=== PATIENT | male | born 1950 | race Caucasian/White ===

== ENCOUNTER 2017-10-15 12:58 | Observation (INO) | payer MEDICARE, SELFPAY ==
[2017-10-15] VITALS (24 sets, daily range): BP systolic 103–151; BP diastolic 61–87; PULSE 60–91; RESP 12–18; TEMP 36.4; O2SAT 95–99; BMI 27.8
--- NOTE | 2017-10-15 | IR_ITS ---
CARDIAC CATHETERIZATION DATE OF CATHETERIZATION:10/15/2017 1:43 PM PROCEDURES: 1. Left heart catheterization 2. Left ventriculogram 3. Selective coronary angiogram 4. Drug-eluting stent deployment to the proximal mid and distal dominant right coronary artery INDICATION FOR TEST: 1. Acute coronary syndrome 2. Coronary artery disease Informed consent was obtained prior to the procedure. COMPLICATIONS: None ESTIMATED BLOOD LOSS: Less than 10 ml. TECHNIQUE: One percent lidocaine used to anesthetize the right anterior aspect of the wrist. The right radial artery was accessed via the Seldinger technique. A 6 [place] sheath was placed in the right radial artery. 2.5 mg of verapamil, 800 mcg of nitroglycerin and 5000 U Heparin were given through the arterial sheath. The trap catheter was also used to perform left heart catheterization left ventriculogram and selective coronary angiogram. At the end of the diagnostic angiogram and additional 5000 units of heparin was administered intravenously. Brilinta 180 mg was given orally on the table. An Ikari right guide catheter was used intubate the right coronary artery and a choice PT extra-support wire was placed distally. 3.5 x 38 mm resolute [place] stent was deployed at 22 rishi in the proximal right coronary artery reducing the critical disease to 30%. An additional 4 mm x 38 mm resolute [place] stent was placed distal to the first stent overlapping this first stent and then deployed at 20 rishi. The balloon was brought back and deployed at 20 rishi within 3.5 mm stent. An additional 4.5 x 12 mm resolute Parish stent was then placed proximal to the first stent yet still overlapping and then deployed at 20 rishi. Excellent angiographic results were obtained with wide patency of the artery after the procedure. LEONOR II flow was present at the beginning of the procedure with LEONOR-3 flow at the end of the procedure. ANGIOGRAPHIC RESULTS: 1. The left main artery normal 2. 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 3. The circumflex artery nondominant and has mid vessel 10-20% stenoses 4. The right coronary artery is a large dominant vessel and has proximal eccentric 60% stenosis critical mid vessel 99% stenosis with distal 90% stenoses. 5. The GARCES ventriculogram reveals normal 65% 6. The left ventricular end-diastolic pressure elevated 30 mmHg IMPRESSION: 1. Critical proximal and mid and distal dominant right coronary artery disease accompanied by slow LEONOR II flow 2. Successful reconstruction of the proximal mid and distal dominant right coronary artery critical disease reduced to 0% with 3 drug-eluting stents 3. Normal ejection fraction 4. Moderately elevated LVEDP consistent with diastolic dysfunction and or hypertensive heart disease 5. Angiographically impressive mid myocardial bridge which is unlikely producing any clinical sequelae PLAN: 1. Brilinta and aspirin 2. LDL less than 55 3. Avoidance of tobacco products 4. Risk factor modification 5. The myocardial bridge is best managed medically with beta blockers and or diltiazem 6. Cardiac rehabilitation
--- NOTE | 2017-10-15 13:24 | HMH.CARDCON2 ---
History of Present Illness Consult date: 10/15/17 Requesting physician: Anders Li Consult reason: chest pain Chief complaint: chest pain History of present illness: 7-year-old white male with history of hypertension and rheumatoid arthritis was sent by Dr. Franks from the [facility] for evaluation for chest pain. Patient relates a 2 hour episode of substernal chest pressure and left arm discomfort last evening that resolved spontaneously. Occurred at rest included some nausea and diaphoresis. Patient had recurrent symptoms this a.m. while at work also at rest. EKG in Dr. Franks's office showed some questionable ST changes and patient was referred for further evaluation. She does take an aspirin 81 mg daily. He is non-smoker and not a diabetic. His mother did have some early heart disease in her early 60s. Review of Systems - *Cardiovascular Reports chest pain - *Respiratory Reports shortness of breath [facility] History Medical History: Reports:: Hypertension Other Medical History: Reports: Arthritis Exam - *Routine Neck Exam Absent: JVD, carotid bruit - *Routine Respiratory Exam Present: CTA bilaterally - *Routine Cardiovascular Exam Present: RRR. Absent: murmur, gallop, rubs - *Routine Extremities Exam Absent: edema - *Routine Neurological Exam Present: alert, oriented X3, moving all extremities EKG interpretations - EKG EKG shows: sinus rhythm Assessment and Plan (1) History of class IV angina pectoris Current visit: Yes Status: Acute Category: Medical Code(s): Z86.79 - Personal history of other diseases of the circulatory system (2) Hypertension Current visit: Yes Status: Acute Category: Medical Code(s): I10 - Essential (primary) hypertension (3) Arthritis Current visit: Yes Status: Acute Category: Medical Code(s): M19.90 - Unspecified osteoarthritis, unspecified site - Assessment and plan all Dx Assessment and Plan for all problems:: Patient has new onset angina pectoris at rest, class IV. We will proceed with left heart catheterization due to risk factors of hypertension, rheumatoid arthritis and family history of heart disease with abnormal EKG. Further recommendations to follow.
--- NOTE | 2017-10-15 13:28 | P.CONS_ITS ---
History of Present Illness Consult date: 10/15/17 Requesting physician: Anders Li Consult reason: chest pain Chief complaint: chest pain History of present illness: 7-year-old white male with history of hypertension and rheumatoid arthritis was sent by Dr. Franks from the [facility] for evaluation for chest pain. Patient relates a 2 hour episode of substernal chest pressure and left arm discomfort last evening that resolved spontaneously. Occurred at rest included some nausea and diaphoresis. Patient had recurrent symptoms this a.m. while at work also at rest. EKG in Dr. Franks's office showed some questionable ST changes and patient was referred for further evaluation. She does take an aspirin 81 mg daily. He is non-smoker and not a diabetic. His mother did have some early heart disease in her early 60s. Review of Systems - *Cardiovascular Reports chest pain - *Respiratory Reports shortness of breath [facility] History Medical History: Reports:: Hypertension Other Medical History: Reports: Arthritis Exam - *Routine Neck Exam Absent: JVD, carotid bruit - *Routine Respiratory Exam Present: CTA bilaterally - *Routine Cardiovascular Exam Present: RRR. Absent: murmur, gallop, rubs - *Routine Extremities Exam Absent: edema - *Routine Neurological Exam Present: alert, oriented X3, moving all extremities EKG interpretations - EKG EKG shows: sinus rhythm Assessment and Plan (1) History of class IV angina pectoris Current visit: Yes Status: Acute Category: Medical Code(s): Z86.79 - Personal history of other diseases of the circulatory system (2) Hypertension Current visit: Yes Status: Acute Category: Medical Code(s): I10 - Essential (primary) hypertension (3) Arthritis Current visit: Yes Status: Acute Category: Medical Code(s): M19.90 - Unspecified osteoarthritis, unspecified site - Assessment and plan all Dx Assessment and Plan for all problems:: Patient has new onset angina pectoris at rest, class IV. We will proceed with left heart catheterization due to risk factors of hypertension, rheumatoid arthritis and family history of heart disease with abnormal EKG. Further recommendations to follow.
[2017-10-15 13:42] LABS: Basophils # 0.1 K/mm3 (0-0.2); Basophils % 0.3 % (0.1-2.0); Eosinophils # 0.1 K/mm3 (0.0-0.4); Eosinophils % 0.7 % (0.1-12.0); Hematocrit 38.4 % (42.0-52.0); Hemoglobin 12.8 g/dL (14.1-18.0); Lymphocytes # 1.2 K/mm3 (0.7-4.5); Lymphocytes % 9.1 K/mm3 (10-50); Mean Corpuscular HGB Conc 33.4 g/dL (31.8-35.4); Mean Corpuscular Volume 89.8 fl (80-94); Mean Platelet Volume 7.7 fl (7.4-10.4); Monocytes # 0.4 K/mm3 (0.1-1.0); Monocytes % 2.6 % (1.7-9.3); Neutrophils # 11.9 K/mm3 (1.8-7.8); Neutrophils % 87.3 % (37.0-80.0); Platelet Count 307 K/mm3 (142-424); Red Blood Count 4.28 M/mm3 (4.60-6.20); Red Cell Distribution Width 15.1 % (11.5-17.5); White Blood Count 13.6 K/mm3 (4.8-10.8)
[2017-10-15 13:45] LABS: MANUAL DIFFERENTIAL MANUAL DIFFERENTIAL (MANUAL DIFF)
--- NOTE | 2017-10-15 13:46 | HMH.HP ---
*Admission Date: 10/15/17 *Chief complaint: chest pain *History of present illness: 67-year-old white male with history of hypertension and rheumatoid arthritis was sent by Dr. Li from the [facility] for evaluation for chest pain. Patient relates a 2 hour episode of substernal chest pressure and left arm discomfort last evening that resolved spontaneously. Occurred at rest included some nausea and diaphoresis. Patient had recurrent symptoms this a.m. while at work also at rest. EKG in Dr. Franks's office showed some questionable ST changes and patient was referred for further evaluation.e does take an aspirin 81 mg daily. He is non-smoker and not a diabetic. His mother did have some early heart disease in her early 60s. Above per HUNTER Greenberg [facility] History I have reviewed the patient's past medical history: Yes Medical History: Reports:: Hypertension Other Medical History: Reports: Arthritis - *Social History Educational Level: Completed High School Smoking Status: Former smoker Alcohol Intake: never Occupational Status: employed - Psychiatric History Expresses thoughts of harming self/others: None Suicide Plan Description: No Plan *Family Hx:: Hypertension Review of Systems - Review of Systems Review of systems:: pertinent systems reviewed and negative unless documented below - *Cardiovascular Reports chest pain, Reports shortness of breath with activity, Reports radiating jaw, neck or arm pain Meds Allergies Allergy/AdvReac Type Severity Reaction Status Date / Time No Known Allergies Allergy Verified 10/15/17 13:25 Exam Vital signs and Labs for Last 24 Hours: Pulse Resp BP Pulse Ox 91 H 16 151/87 95 10/15/17 13:26 10/15/17 13:26 10/15/17 13:26 10/15/17 13:26 Laboratory Results - last 24 hr 10/15/17 13:30: WBC 13.6 H, RBC 4.28 L, Hgb 12.8 L, Hct 38.4 L, MCV 89.8, MCH 30.0, MCHC 33.4, RDW 15.1, Plt Count 307, MPV 7.7, Neut % (Auto) 87.3 H, Lymph % (Auto) 9.1 L, [place] % (Auto) 2.6, Eos % (Auto) 0.7, Baso % (Auto) 0.3, Neut # (Auto) 11.9 H, Lymph # (Auto) 1.2, [place] # (Auto) 0.4, Eos # (Auto) 0.1, Baso # (Auto) 0.1 I & O for Last 24 hours: Intake & Output 10/13/17 10/14/17 10/15/17 10/16/17 11:59 11:59 11:59 11:59 Weight 205 lb Narrative: Alert and oriented x3. Rate and rhythm regular. No LE edema. Pulses 2+ bilaterally. No JVD. No Carotid bruits. No cervical LAD. Lung sounds clear and equal bilaterally. Abdomen soft and nontender. Normal sensation and strength bilaterally H&P: Result - Labs Labs: Short CBC 10/15/17 Range/Units 13:30 WBC 13.6 H (4.8-10.8) K/mm3 Hgb 12.8 L (14.1-18.0) g/dL Hct 38.4 L (42.0-52.0) % Plt Count 307 (142-424) K/mm3 Assessment and Plan (1) History of class IV angina pectoris Current visit: Yes Status: Acute Category: Medical Code(s): Z86.79 - Personal history of other diseases of the circulatory system (2) Hypertension Current visit: Yes Status: Acute Category: Medical Code(s): I10 - Essential (primary) hypertension (3) Arthritis Current visit: Yes Status: Acute Category: Medical Code(s): M19.90 - Unspecified osteoarthritis, unspecified site - Assessment and plan all Dx Assessment and Plan for all problems:: Admitted with chest pain protocol orders. Cardiology consulted. NPO for heart cath later today.
--- NOTE | 2017-10-15 13:50 | P.HP_ITS ---
*Admission Date: 10/15/17 *Chief complaint: chest pain *History of present illness: 67-year-old white male with history of hypertension and rheumatoid arthritis was sent by Dr. Li from the [facility] for evaluation for chest pain. Patient relates a 2 hour episode of substernal chest pressure and left arm discomfort last evening that resolved spontaneously. Occurred at rest included some nausea and diaphoresis. Patient had recurrent symptoms this a.m. while at work also at rest. EKG in Dr. Franks's office showed some questionable ST changes and patient was referred for further evaluation.e does take an aspirin 81 mg daily. He is non-smoker and not a diabetic. His mother did have some early heart disease in her early 60s. Above per HUNTER Greenberg [facility] History I have reviewed the patient's past medical history: Yes Medical History: Reports:: Hypertension Other Medical History: Reports: Arthritis - *Social History Educational Level: Completed High School Smoking Status: Former smoker Alcohol Intake: never Occupational Status: employed - Psychiatric History Expresses thoughts of harming self/others: None Suicide Plan Description: No Plan *Family Hx:: Hypertension Review of Systems - Review of Systems Review of systems:: pertinent systems reviewed and negative unless documented below - *Cardiovascular Reports chest pain, Reports shortness of breath with activity, Reports radiating jaw, neck or arm pain Meds Allergies Allergy/AdvReac Type Severity Reaction Status Date / Time No Known Allergies Allergy Verified 10/15/17 13:25 Exam Vital signs and Labs for Last 24 Hours: Pulse Resp BP Pulse Ox 91 H 16 151/87 95 10/15/17 13:26 10/15/17 13:26 10/15/17 13:26 10/15/17 13:26 Laboratory Results - last 24 hr 10/15/17 13:30: WBC 13.6 H, RBC 4.28 L, Hgb 12.8 L, Hct 38.4 L, MCV 89.8, MCH 30.0, MCHC 33.4, RDW 15.1, Plt Count 307, MPV 7.7, Neut % (Auto) 87.3 H, Lymph % (Auto) 9.1 L, [place] % (Auto) 2.6, Eos % (Auto) 0.7, Baso % (Auto) 0.3, Neut # ( Auto) 11.9 H, Lymph # (Auto) 1.2, [place] # (Auto) 0.4, Eos # (Auto) 0.1, Baso # ( Auto) 0.1 I & O for Last 24 hours: Intake & Output 10/13/17 10/14/17 10/15/17 10/16/17 11:59 11:59 11:59 11:59 Weight 205 lb Narrative: Alert and oriented x3. Rate and rhythm regular. No LE edema. Pulses 2+ bilaterally. No JVD. No Carotid bruits. No cervical LAD. Lung sounds clear and equal bilaterally. Abdomen soft and nontender. Normal sensation and strength bilaterally H&P: Result - Labs Labs: Short CBC 10/15/17 Range/Units 13:30 WBC 13.6 H (4.8-10.8) K/mm3 Hgb 12.8 L (14.1-18.0) g/dL Hct 38.4 L (42.0-52.0) % Plt Count 307 (142-424) K/mm3 Assessment and Plan (1) History of class IV angina pectoris Current visit: Yes Status: Acute Category: Medical Code(s): Z86.79 - Personal history of other diseases of the circulatory system (2) Hypertension Current visit: Yes Status: Acute Category: Medical Code(s): I10 - Essential (primary) hypertension (3) Arthritis Current visit: Yes Status: Acute Category: Medical Code(s): M19.90 - Unspecified osteoarthritis, unspecified site - Assessment and plan all Dx Assessment and Plan for all problems:: Admitted with chest pain protocol orders. Cardiology consulted. NPO for heart cath later today.
[2017-10-15 14:11] LABS: Alanine Aminotransferase 24 U/L (12-78); Albumin Level 3.3 gm/dL (3.4-5.0); Albumin/Globulin Ratio 0.9 (1.1-1.8); Alkaline Phosphatase 75 U/L (46-116); Anion Gap 14.5 mEq/L (5-15); Aspartate Amino Transferase 15 U/L (15-37); Bilirubin,Total 0.6 mg/dL (0.2-1.0); Blood Urea Nitrogen 25 mg/dL (7-18); CKMB Relative Index 1.9 U/L (0-4.0); Calcium 8.8 mg/dL (8.5-10.1); Carbon Dioxide 27 mmol/L (21.0-32.0); Chloride 103 mmol/L (98-107); Creatine Kinase 90 U/L (39-308); Creatine Kinase MB 1.7 mg/ml (0.0-3.6); Creatinine Clearance Estimated 74 mL/min (0-300); Creatinine,Serum 1.27 mg/dL (0.70-1.30); Estimated Glomerular Filt Rate 57 ml/min (>60); GFR (African American) 68 ML/MIN (>60); Globulin 3.8 gm/dl (1.3-3.2); Glucose 160 mg/dL (74-106); Potassium 3.5 mmoL/L (3.5-5.1); Sodium 141 mmol/L (136-145); Total Protein,Serum 7.1 gm/dL (6.4-8.2); Troponin I 0.04 ng/ml (0.00-0.06)
[2017-10-15 14:27] LABS: Lymphocytes % 3 % (10-50); Monocytes % 4 % (2-9); Neutrophils % 93 % (42-76); Platelet Estimate Normal; RBC Morphology Normal; Total Cells Counted 100
[2017-10-15 14:32] LABS: Thyroid Stimulating Hormone 1.38 uIU/ml (0.358-3.740)
[2017-10-15 15:24] LABS: CATHL Activated Clotting Time 288 SEC (74-125)
[2017-10-15 15:34] LABS: Hemoglobin A1C 6.3 % (0.0-7.0)
[2017-10-15 16:54] LABS: Troponin I 0.22 ng/ml (0.00-0.06)
--- NOTE | 2017-10-15 17:29 | PC.NURSE ---
Jag Lehman RN received report from Brisa in lab animal technician. I received report from Eliot Lehman RN. Pt arrived to his room via stretcher. Tracelet in place w/12ml's of air. Lungs are clear, o2 in 90' s on room air. Respirations are even and non labored. Abd soft and non tender w/active bowel sounds. Heart has a regular rate and rhythm. NSR on monitor. Cap refill <3 sec. Pt has a good appetite. Lots of family and friends at bedside. No complaints verbalized. Will continue to monitor.
--- NOTE | 2017-10-15 18:51 | PC.NURSE ---
Tracelet in place when pt arrived to the unit. Air was removed as follows: 1705 - 2ml's removed; 10 ml's left in tracelet 1720 - 2ml's removed; 8 ml's left in tracelet 1735 - 2ml's removed; 6 ml's left in traclet 1750 - 2ml's removed; 4 ml's left in tracelet 1805 - 2ml's removed; 2 ml's left in tracelet 1820 - 2ml's removed; 0 ml's left in tracelet 1835 - tracelet removed Telfa and tegaderm in place over r wrist. No s/s of hematoma; No oozing noted at site. Pt tolerated procedure w/o incident.
--- NOTE | 2017-10-15 19:12 | PC.NURSE ---
Report given to S Call RN
[2017-10-15 19:42] LABS: Troponin I 0.49 ng/ml (0.00-0.06)
[2017-10-15 23:02] LABS: Troponin I 1.09 ng/ml (0.00-0.06)
[2017-10-16] VITALS: BP 149/62; PULSE 57; PULSE 80; RESP 16; TEMP 36.9; O2SAT 96
--- NOTE | 2017-10-16 | CA_ITS ---
PROCEDURE: 2-D M-mode and color Doppler study INDICATIONS FOR THE TEST: Chest painX COPD Heart Murmur Tobacco Smoking Palpitations Fatigue Syncope Edema Hypertension Diabetes Mellitus Rheumatic Fever SOB QUINONES Obesity Hyperlipidemia Family History HD Additional History CAD,STENTS 10/15/17 PATIENT INFORMATION HEIGHT: 72 WEIGHT:205 GENDER: Male B/P:151/87 2-D/M-MODE INTERPRETATION: 2-D MEASUREMENTS OBSERVED VALUES IN CMS Right Ventricular Dimension (RVDd) 1.9 Interventricular Septum (Thickness)(IVsd) 1.0 Left Ventricular Internal Dimensions(LVIDd) 4.6 Left Ventricular Posterior Wall (Thickness)(LVPWd) 1.2 Aortic Root 3.9 Aortic Cusp Separation 1.9 Left Atrial Dimensions (LAD) 3.1 2D 1. Left atrium is qualitatively mildly enlarged, left ventricle is normal size, left ventricle wall thickness is upper limit of the normal, visually estimated ejection fraction of 50%, there appears to be inferobasal wall hypokinesis. 2. The right atrium and right ventricle are relatively normal size and function. 3. The aortic, mitral and tricuspid valve are grossly normal. 4. The pulmonic valve is poorly visualized. 5. No significant pericardial effusion noted. DOPPLER INTERROGATION: Doppler interrogation of the aortic, mitral and tricuspid valvular presence of mild mitral and tricuspid regurgitation, tricuspid and jet velocity is insufficient for calculation of the right ventricular systolic pressure, grade 1 diastolic dysfunction seen with tissue Doppler evidence of raised left atrial pressure. CONCLUSION: 1. Qualitatively mildly enlarged left atrium, normal left ventricular size, visually estimated ejection fraction of 50% with segmental wall motion abnormality described above, grade 1 diastolic dysfunction seen with tissue Doppler evidence of raised left atrial pressure. 2. Mild mitral and tricuspid regurgitation 3. No significant pericardial effusion noted.
[2017-10-16 02:08] VITALS: BP 159/74; PULSE 86; RESP 17; O2SAT 95
--- NOTE | 2017-10-16 03:09 | PC.NURSE ---
PT IS A&OX3. HE IS S/P HEART CATH AND RECEIVED 3 STENTS. HE DENIES CHEST PAIN AND ANY OTHER TYPE OF PAIN. HE REPORTS THAT HE FEELS MUCH BETTER THAT IT USED TO BE VERY DIFFICULT FOR HIM TO TAKE DEEP BREATHS. LUNG SOUNDS CTA. NORMAL BOWEL SOUNDS. HE HAS BEEN AMBULATING TO THE BATHROOM. RIGHT RADIAL DSG IS C/D/I. NO BRUISING OR SWELLING AT THE SITE. POSITIVE RADIAL AND PEDAL PULSES. NO EDEMA NOTED. CAPILLARY REFILL <3. PT EDUCATED TO NOTIFY STAFF IF HE NOTICES ANY BRUISING, BLEEDING, SWELLING AT SITE, OR IF HE HAS ANY FEELINGS OF THROBBING OR PULSATING AT OR NEAR THE SITE. HE WAS EDUCATED THAT THE DSG COULD COME OFF AFTER 24 HOURS BUT THAT HE SHOULD CONTINUE NOT TO USE HIS RIGHT ARM FOR STRENOUS ACTIVITY FOR 48-72 HOURS. HE VERBALIZED UNDERSTANDING. NSR ON TELEMETRY. VSS.
[2017-10-16 04:00] VITALS: BP 120/77; PULSE 80; RESP 18; O2SAT 94
[2017-10-16 06:00] VITALS: BP 142/59; PULSE 59; RESP 17; O2SAT 95
[2017-10-16 06:39] LABS: Chol/HDL Ratio 4.4 (1-3.5); Cholesterol 149 mg/dL (140-200); HDL Cholesterol 34 mg/dL (27-67); LDL Cholesterol 88 mg/dL (0-130); Triglycerides 137 mg/dL (30-200); VLDL Cholesterol 27 mg/dL (0-40)
--- NOTE | 2017-10-16 07:44 | HMH.PHAVTE ---
[facility] Pharmacy VTE Monitoring - Patient Demographics Admission date: 10/15/17 Report Date: 10/16/17 Time: 07:44 Allergies/Adverse Reactions: Patient Allergies No Known Allergies Allergy (Verified 10/15/17 13:25) Height: 1.83 m Weight: 91.626 kg Patient Problems: Current Active Problems History of class IV angina pectoris (Acute) Hypertension (Acute) Arthritis (Acute) - VTE Risk Labs: VTE Related Lab Results Hgb 12.8 g/dL (14.1-18.0) L 10/15/17 13:30 Hct 38.4 % (42.0-52.0) L 10/15/17 13:30 Plt Count 307 K/mm3 (142-424) 10/15/17 13:30 BUN 25 mg/dL (7-18) H 10/15/17 13:30 Creatinine 1.27 mg/dL (0.70-1.30) 10/15/17 13:30 Estimated Creat Clear 74 mL/min (0-300) 10/15/17 13:30 Was VTE Risk Assessment Performed: Yes VTE Risk Level: Very Low Risk Clinical Trial Participant: No - Prophylaxis Types of VTE Prophylaxis: TEDS Knee High Location of Applied Device: Bilateral Lower Extremeties
--- NOTE | 2017-10-16 07:49 | HMH.DCSUM ---
General - General Admission date: 10/15/17 Discharge date: 10/16/17 HPI HPI: 67-year-old white male with history of hypertension and rheumatoid arthritis was sent by Dr. Li from the [facility] for evaluation for chest pain. Patient relates a 2 hour episode of substernal chest pressure and left arm discomfort last evening that resolved spontaneously. Occurred at rest included some nausea and diaphoresis. Patient had recurrent symptoms this a.m. while at work also at rest. EKG in Dr. Franks's office showed some questionable ST changes and patient was referred for further evaluation.e does take an aspirin 81 mg daily. He is non-smoker and not a diabetic. His mother did have some early heart disease in her early 60s. Above per HUNTER Greenberg Objective Vital signs: Temp Pulse Resp BP Pulse Ox 98.4 F 59 L 17 142/59 95 10/16/17 00:00 10/16/17 06:00 10/16/17 06:00 10/16/17 06:00 10/16/17 06:00 Narrative: His morning, on day of discharge patient's exam has normalized, with clear lungs, heart rate regular, no edema. He is alert, pleasant, oriented, has no pain. Hospital Course Hospital Course: Patient was admitted, enzymes were negative, but taken to Data Security Administrator because of inferior EKG changes and typical angina. He was found to have significant critical RCA lesion which was the dominant system. 3 stents were placed with good results. Good hemodynamics. Overnight patient did well. This morning he is doing very nicely, no complaints, has been up around walking with no chest pain. He will be discharged home. Results Labs on day of discharge: Labs from last 24 hours 10/16/17 10/15/17 10/15/17 05:30 Unknown 22:15 WBC RBC Hgb Hct MCV MCH MCHC RDW Plt Count MPV Neut % (Auto) Lymph % (Auto) [place] % (Auto) Eos % (Auto) Baso % (Auto) Neut # (Auto) Lymph # (Auto) [place] # (Auto) Eos # (Auto) Baso # (Auto) Total Counted Neutrophils % (Manual) Lymphocytes % (Manual) Monocytes % (Manual) Platelet Estimate RBC Morphology Activated Clotting Time Sodium Potassium Chloride Carbon Dioxide Anion Gap BUN Creatinine Estimated Creat Clear Estimated GFR Est GFR ( Amer) Glucose Hemoglobin A1c Calcium Total Bilirubin AST ALT Alkaline Phosphatase Total Creatine Kinase CK-MB (CK-2) CK-MB (CK-2) Rel Index Troponin I 0.22 H 1.09 H Total Protein Albumin Globulin Albumin/Globulin Ratio Triglycerides 137 Cholesterol 149 LDL Cholesterol 88 VLDL Cholesterol 27 HDL Cholesterol 34 Cholesterol/HDL Ratio 4.4 H TSH 10/15/17 10/15/17 10/15/17 19:10 15:01 13:30 WBC RBC Hgb Hct MCV MCH MCHC RDW Plt Count MPV Neut % (Auto) Lymph % (Auto) [place] % (Auto) Eos % (Auto) Baso % (Auto) Neut # (Auto) Lymph # (Auto) [place] # (Auto) Eos # (Auto) Baso # (Auto) Total Counted Neutrophils % (Manual) Lymphocytes % (Manual) Monocytes % (Manual) Platelet Estimate RBC Morphology Activated Clotting Time 288 H* Sodium Potassium Chloride Carbon Dioxide Anion Gap BUN Creatinine Estimated Creat Clear Estimated GFR Est GFR ( Amer) Glucose Hemoglobin A1c 6.3 Calcium Total Bilirubin AST ALT Alkaline Phosphatase Total Creatine Kinase CK-MB (CK-2) CK-MB (CK-2) Rel Index Troponin I 0.49 H Total Protein Albumin Globulin Albumin/Globulin Ratio Triglycerides Cholesterol LDL Cholesterol VLDL Cholesterol HDL Cholesterol Cholesterol/HDL Ratio TSH 10/15/17 10/15/17 10/15/17 13:30 13:30 13:30 WBC 13.6 H RBC 4.28 L Hgb 12.8 L Hct 38.4 L MCV 89.8 MCH 30.0 MCHC 33.4 RDW 15.1 Plt Count 307 MPV
--- NOTE | 2017-10-16 07:55 | P.DS_ITS ---
General - General Admission date: 10/15/17 Discharge date: 10/16/17 HPI HPI: 67-year-old white male with history of hypertension and rheumatoid arthritis was sent by Dr. Li from the [facility] for evaluation for chest pain. Patient relates a 2 hour episode of substernal chest pressure and left arm discomfort last evening that resolved spontaneously. Occurred at rest included some nausea and diaphoresis. Patient had recurrent symptoms this a.m. while at work also at rest. EKG in Dr. Franks's office showed some questionable ST changes and patient was referred for further evaluation.e does take an aspirin 81 mg daily. He is non-smoker and not a diabetic. His mother did have some early heart disease in her early 60s. Above per [facility]UN[facility] Objective Vital signs: Temp Pulse Resp BP Pulse Ox 98.4 F 59 L 17 142/59 95 10/16/17 00:00 10/16/17 06:00 10/16/17 06:00 10/16/17 06:00 10/16/17 06:00 Narrative: His morning, on day of discharge patient's exam has normalized, with clear lungs , heart rate regular, no edema. He is alert, pleasant, oriented, has no pain. Hospital Course Hospital Course: Patient was admitted, enzymes were negative, but taken to [employer] because of inferior EKG changes and typical angina. He was found to have significant critical RCA lesion which was the dominant system. 3 stents were placed with good results. Good hemodynamics. Overnight patient did well. This morning he is doing very nicely, no complaints , has been up around walking with no chest pain. He will be discharged home. Results Labs on day of discharge: Labs from last 24 hours 10/16/17 10/15/17 10/15/17 05:30 Unknown 22:15 WBC RBC Hgb Hct MCV MCH MCHC RDW Plt Count MPV Neut % (Auto) Lymph % (Auto) Mayes % (Auto) Eos % (Auto) Baso % (Auto) Neut # (Auto) Lymph # (Auto) Mayes # (Auto) Eos # (Auto) Baso # (Auto) Total Counted Neutrophils % (Manual) Lymphocytes % (Manual) Monocytes % (Manual) Platelet Estimate RBC Morphology Activated Clotting Time Sodium Potassium Chloride Carbon Dioxide Anion Gap BUN Creatinine Estimated Creat Clear Estimated GFR Est GFR ( Amer) Glucose Hemoglobin A1c Calcium Total Bilirubin AST ALT Alkaline Phosphatase Total Creatine Kinase CK-MB (CK-2) CK-MB (CK-2) Rel Index Troponin I 0.22 H 1.09 H Total Protein Albumin Globulin Albumin/Globulin Ratio Triglycerides 137 Cholesterol 149 LDL Cholesterol 88 VLDL Cholesterol 27 HDL Cholesterol 34 Cholesterol/HDL Ratio 4.4 H TSH 10/15/17 10/15/17 10/15/17 19:10 15:01 13:30 WBC RBC Hgb Hct MCV MCH MCHC RDW Plt Count MPV Neut % (Auto) Lymph % (Au
[2017-10-16 08:00] VITALS: BP 99/75; PULSE 83; PULSE 90; PULSE 91; RESP 14; RESP 16; O2SAT 95; O2SAT 96
--- NOTE | 2017-10-16 09:34 | HMH.CARDPN2 ---
Subjective PN (PG) Date: 10/16/17 Time: 08:30 Principal diagnosis: Angina Interval history: 67-year-old white male who underwent coronary stenting to the right coronary artery yesterday. Denies any chest pain or pressure overnight. PN Exam ([facility] Owned) Vital signs: Temp Pulse Resp BP Pulse Ox 98.4 F 91 H 16 142/59 95 10/16/17 00:00 10/16/17 08:00 10/16/17 08:00 10/16/17 06:00 10/16/17 08:00 - Routine Respiratory Exam Present: CTA bilaterally - Routine Cardiovascular Exam Present: RRR A/P Progress Note ([facility] Owned) (1) History of class IV angina pectoris Status: Acute Current Visit: Yes (2) Hypertension Status: Acute Current Visit: Yes (3) Arthritis Status: Acute Current Visit: Yes (4) CAD (coronary artery disease), [place] coronary artery Status: Acute Assessment and plan: Status post drug-eluting stent placement ?3 to the right coronary artery. Patient is on aspirin and Brilinta. He has been started on statin therapy. Continue home lisinopril dose. Okay for discharge from cardiology standpoint. Follow-up in 1 week. Current Visit: Yes
[2017-10-16 10:00] VITALS: BP 120/70; PULSE 79; RESP 18; TEMP 36.8; O2SAT 95
== END 2017-10-16 12:00 | disposition home or self-care (01) ==
LOC: 2ND 13:23 → ICU 16:13
PROVIDERS: Internal Medicine; Nurse Practitioner Family; Admitting Provider Internal Medicine Adolescent Medicine; Visit Provider Internal Medicine Adolescent Medicine
DX: I25.10 Atherosclerotic heart disease of native coronary artery without angina pectoris (principal); I10 Essential (primary) hypertension; M06.9 Rheumatoid arthritis, unspecified; R79.89 Other specified abnormal findings of blood chemistry
CPT/HCPCS: 36415; 80053; 80061; 82550; 82553; 83036; 84443; 84484; 85007; 85025; 85347; 92928; 92929; 93005; 93306; 93458; 99152; 99153; C1725; C1769; C1876; C9600; C9601; G0378; J1644

== ENCOUNTER 2017-10-23 09:14 | Outpatient (RCR) | payer MEDICARE, SELFPAY | END 2017-12-31 10:49 | disposition home or self-care (01) | LOC: PT 09:14 | PROVIDERS: Visit Provider Internal Medicine | DX: Z95.5 Presence of coronary angioplasty implant and graft (principal) ==

== ENCOUNTER 2017-10-25 21:22 | Observation (INO) | payer MEDICARE, SELFPAY ==
[2017-10-25 21:29] VITALS: BP 135/89; PULSE 82; RESP 20; TEMP 36.8; O2SAT 97; BMI 26.9
--- NOTE | 2017-10-25 21:35 | XR_ITS ---
XR chest 2V HISTORY: ITS.REASON: sob ORDERING PHYSICIAN: Rohan Jules MD PATIENT AGE: 67 years COMPARISON: None available FINDINGS: The heart size is normal. No evidence of CHF. There is increased density in the left hilum suspicious for hilar mass pneumonia in the left upper lobe which may be postobstructive in nature. The remaining lungs are clear. No acute bony anomalies or effusion. IMPRESSION: Left hilar mass with left upper lobe pneumonia suspicious for neoplasm with postobstructive pneumonitis. Recommend chest CT with contrast for further evaluation
[2017-10-25 21:42] LABS: Basophils % 0.6 % (0.1-2.0); Eosinophils % 0.5 % (0.1-12.0); Hematocrit 39.3 % (42.0-52.0); Hemoglobin 13.1 g/dL (14.1-18.0); Lymphocytes # 1.3 K/mm3 (0.7-4.5); Lymphocytes % 21.6 K/mm3 (10-50); Mean Corpuscular HGB Conc 33.5 g/dL (31.8-35.4); Mean Corpuscular Hemoglobin 30.1 pg (27.0-31.2); Mean Corpuscular Volume 89.9 fl (80-94); Mean Platelet Volume 7.2 fl (7.4-10.4); Monocytes # 0.5 K/mm3 (0.1-1.0); Monocytes % 8.7 % (1.7-9.3); Neutrophils # 4.2 K/mm3 (1.8-7.8); Neutrophils % 68.7 % (37.0-80.0); Platelet Count 319 K/mm3 (142-424); Red Blood Count 4.37 M/mm3 (4.60-6.20); White Blood Count 6.1 K/mm3 (4.8-10.8)
--- NOTE | 2017-10-25 21:53 | PC.NURSE ---
pt with rad
--- NOTE | 2017-10-25 22:00 | HMH.EDSOB ---
ED Disposition Clinical Impression: Community acquired pneumonia Qualifiers: Laterality: left Lung location: unspecified part of lung Qualified Code(s): J18.9 - Pneumonia, unspecified organism Disposition: Admitted as Observation Condition on Discharge: Good Referrals: Anders Li MD [Primary Care Provider] - - Critical Care Critical Care Time: No Attestation: On 10/25/17, the high probability of a clinically significant, sudden or life threatening deterioration of the following system(s) required my full and direct attention, intervention and personal management. The time I documented below is in addition to time spent performing reported procedures but includes the following listed in this critical care notation. Medical Decision Making - Medical Records Medical records reviewed: Yes: I reviewed the patient's medical records. Vital Signs: 10/25/17 21:29 Temperature 98.3 F Temperature Source Oral Pulse Rate [Right Radial] 82 Respiratory Rate 20 Blood Pressure [Right Arm] 135/89 Blood Pressure Mean [Right Arm] 104 Blood Pressure Source [Right Arm] Automatic Cuff Blood Pressure Position [Right Arm] Sitting 02 Sat by Pulse Oximetry 97 Oxygen Delivery Method Room Air - Lab Data Lab results reviewed: Yes: I reviewed the patient's lab results. Lab Results 10/25/17 21:40: WBC 6.1, RBC 4.37 L, Hgb 13.1 L, Hct 39.3 L, MCV 89.9, MCH 30.1, MCHC 33.5, RDW 15.0, Plt Count 319, MPV 7.2 L, Neut % (Auto) 68.7, Lymph % (Auto) 21.6, Banner % (Auto) 8.7, Eos % (Auto) 0.5, Baso % (Auto) 0.6, Neut # (Auto) 4.2, Lymph # (Auto) 1.3, Banner # (Auto) 0.5, Eos # (Auto) 0.0, Baso # (Auto) 0.0 10/25/17 21:40: Sodium 139, Potassium 3.6, Chloride 102, Carbon Dioxide 26, Anion Gap 14.6, BUN 27 H, Creatinine 1.14, Estimated Creat Clear 80, Estimated GFR 64, Est GFR ( Amer) 78, Glucose 143 H, Calcium 8.5, Total Bilirubin 0.4, AST 34, ALT 38, Alkaline Phosphatase 69, Total Creatine Kinase 380 H, CK-MB (CK-2) 4.8 H D, CK-MB (CK-2) Rel Index 1.3, Troponin I 0.02, Total Protein 6.8, Albumin 3.5, Globulin 3.3 H, Albumin/Globulin Ratio 1.1 10/25/17 21:40: B-Natriuretic Peptide 19 Result diagrams: 10/25/17 21:40 10/25/17 21:40 Orders (Tests/Meds): ORDERS Category Date Time Status XR chest 2V Stat Exams 10/25/17 21:35 Taken Lactic Acid Stat Lab 10/25/17 22:37 Ordered Blood Culture Stat Micro 10/25/17 22:37 Ordered 12-lead EKG Request [ECG Request by /Arcadio] Stat Y 10/25/17 21:37 Ordered - Radiology Data #1 Image(s): Chest Image Reviewed: Yes I reviewed the patient's radiology image Preliminary Findings: Abnormal (lt upper lobe changes ) - ECG Data Tracing #1 I reviewed this ECG and interpreted as documented below: Normal Sinus Rhythm: Yes Ischemic changes: non-specific ST-T wave changes - Jalen Inquiry Pt receiving controlled substance: No Resp/SOB HPI - General Chief Complaint: Shortness of Breath/Dyspnea Stated Complaint: sob Time Seen by Provider: 10/25/17 22:01 Mode of Arrival: Ambulatory Source of Information: Patient, Spouse, Medical Record Limitations: No Limitations Description of Symptoms (Recalled from ER Triage Doc. by RN): Pt. reports 3 stents palce on . Pt reports difficulty breathing, weakness, belching, and feeling jittery. - History of Present Illness productive cough over the last few days MD Complaint: shortness of breath, cough Onset (ago): day(s) Severity: moderate Known history of: other (recent mi) - Related Data Home Medications Medication Instructions Recorded Confirmed predniSONE [Prednisone 5mg 5 mg PO DAILY 10/15/17 10/25/17 Tab] Aspirin [Aspirin 81mg EC Tab] 81 mg PO DAILY 10/16/17 10/25/17 Atorvastatin Calcium [Atorvastatin 40 mg PO HS 10/16/17 10/25/17 40mg Tab] Ticagrelor [Brilinta 90mg Tablet] 90 mg PO BID 10/16/17 10/25/17 benzonatate 100 mg capsule 100 mg PO ONCE 10/23/17 10/25/17 Lisinopril [Prinivil 20mg Tablet] 20
[2017-10-25 22:19] LABS: Alanine Aminotransferase 38 U/L (12-78); Albumin Level 3.5 gm/dL (3.4-5.0); Albumin/Globulin Ratio 1.1 (1.1-1.8); Alkaline Phosphatase 69 U/L (46-116); Anion Gap 14.6 mEq/L (5-15); Bilirubin,Total 0.4 mg/dL (0.2-1.0); Blood Urea Nitrogen 27 mg/dL (7-18); CKMB Relative Index 1.3 U/L (0-4.0); Calcium 8.5 mg/dL (8.5-10.1); Carbon Dioxide 26 mmol/L (21.0-32.0); Chloride 102 mmol/L (98-107); Creatine Kinase 380 U/L (39-308); Creatine Kinase MB 4.8 mg/ml (0.0-3.6); Creatinine Clearance Estimated 80 mL/min (0-300); Creatinine,Serum 1.14 mg/dL (0.70-1.30); Estimated Glomerular Filt Rate 64 ml/min (>60); GFR (African American) 78 ML/MIN (>60); Globulin 3.3 gm/dl (1.3-3.2); Glucose 143 mg/dL (74-106); Potassium 3.6 mmoL/L (3.5-5.1); Sodium 139 mmol/L (136-145); Total Protein,Serum 6.8 gm/dL (6.4-8.2); Troponin I 0.02 ng/ml (0.00-0.06)
[2017-10-25 22:30] LABS: Aspartate Amino Transferase 34 U/L (15-37)
[2017-10-25 23:19] LABS: Lactic Acid 1.3 mmol/L (0.4-2.0)
[2017-10-25 23:20] VITALS: BP 123/85; PULSE 80; RESP 18; TEMP 36.6; O2SAT 100
[2017-10-25 23:30] VITALS: BP 115/64; PULSE 83; RESP 18; O2SAT 98
[2017-10-26] VITALS (11 sets, daily range): BP systolic 110–131; BP diastolic 72–85; PULSE 65–101; RESP 18–20; TEMP 36.5–37; O2SAT 96–98; BMI 26.1
--- NOTE | 2017-10-26 03:30 | PC.NURSE ---
PATIENT C/O FREQUENT BELCHING; STATES THAT HE HAS TO BELCH SEVERAL TIMES IN ORDER TO BE ABLE TO TAKE A DEEP BREATH. PATIENT AND FAMILY STATE THAT PATIENT HAD BEEN HAVING THIS PARTICULAR PROBLEM SINCE HIS HEART CATH LAST SATURDAY. PATIENT IS NOT IN ANY DISTRESS AT THIS TIME. KATHLEEN KLINE SPOKE WITH DR. ZHENG. TO OBTAINED FOR MYLANTA 30 ML PO ONCE. WILL CONTINUE TO MONITOR.
[2017-10-26 06:57] LABS: Basophils % 0.6 % (0.1-2.0); Eosinophils % 0.2 % (0.1-12.0); Hematocrit 34.5 % (42.0-52.0); Lymphocytes # 1.7 K/mm3 (0.7-4.5); Mean Corpuscular HGB Conc 33.5 g/dL (31.8-35.4); Mean Corpuscular Hemoglobin 29.7 pg (27.0-31.2); Mean Corpuscular Volume 88.6 fl (80-94); Mean Platelet Volume 7.3 fl (7.4-10.4); Monocytes # 0.6 K/mm3 (0.1-1.0); Monocytes % 9.8 % (1.7-9.3); Neutrophils # 3.8 K/mm3 (1.8-7.8); Neutrophils % 61.4 % (37.0-80.0); Platelet Count 265 K/mm3 (142-424); Red Blood Count 3.89 M/mm3 (4.60-6.20); Red Cell Distribution Width 14.9 % (11.5-17.5); White Blood Count 6.2 K/mm3 (4.8-10.8)
[2017-10-26 07:06] LABS: Anion Gap 11.4 mEq/L (5-15); Blood Urea Nitrogen 24 mg/dL (7-18); Carbon Dioxide 28 mmol/L (21.0-32.0); Chloride 106 mmol/L (98-107); Creatinine Clearance Estimated 83 mL/min (0-300); Creatinine,Serum 1.06 mg/dL (0.70-1.30); Estimated Glomerular Filt Rate 70 ml/min (>60); GFR (African American) 84 ML/MIN (>60); Glucose 78 mg/dL (74-106); Potassium 3.4 mmoL/L (3.5-5.1); Sodium 142 mmol/L (136-145)
[2017-10-26 07:32] LABS: Hemoglobin 11.7 g/dL (14.1-18.0)
--- NOTE | 2017-10-26 07:35 | CT_ITS ---
CT chest wo/w con HISTORY: Pneumonia, hilar mass, abnormal x-ray, pulmonary nodule evaluation ITS.REASON: abnormal CXR, pneumonia ORDERING PHYSICIAN: Anders Li MD PATIENT AGE: 67 years TECHNIQUE: Axial images obtained without and with contrast. Sagittal and coronal reformatted images are also generated and reviewed. CONTRAST: 75ml Isovue 370 I.V. COMPARISON: Radiograph of 10-25 FINDINGS: Axial images are obtained without and with contrast demonstrating a left hilar mass. Mass is epicentered in the left suprahilar region with extension into the mediastinum draping over the left main pulmonary artery. The largest dimensions of the mass is 6.6 cm transverse, 5.5 cm AP, and 5 cm cephalad to caudad. The mass obliterates the left upper lobe bronchus. There is narrowing of the lingular bronchus with thickening of the lingular bronchus. There is ipsilateral mediastinal adenopathy. Subcarinal adenopathy is also noted with subcarinal nodes measuring up to 3.3 x 2 cm small nodes are present in the right hilum probably 1 cm in short axis. The mass attenuates and possibly includes the upper lobe branch of the pulmonary artery There is post obstructive pneumonia within the left upper lobe most prominent centrally and in the left upper lobe laterally and posteriorly. There are mild centrilobular emphysematous changes. No other nodules are evident. There is a small hiatal hernia. The right lung is clear. The adrenal glands are unremarkable. Upper abdominal images are unremarkable. No evidence of aortic aneurysm. 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 The mass is central and would be amenable to biopsy by bronchoscopy and NOT readily accessible for percutaneous CT directed. Centrilobular emphysema. Coronary artery disease.
--- NOTE | 2017-10-26 13:25 | P.CONPHA_ITS ---
[facility] Pharmacy VTE Monitoring - Patient Demographics Admission date: 10/26/17 Report Date: 10/26/17 Time: 13:24 Allergies/Adverse Reactions: Patient Allergies No Known Allergies Allergy (Verified 10/25/17 21:36) Height: 1.83 m Weight: 87.288 kg Patient Problems: Current Active Problems Community acquired pneumonia (Acute) - VTE Risk Labs: VTE Related Lab Results Hgb 11.7 g/dL (14.1-18.0) L D 10/26/17 06:20 Hct 34.5 % (42.0-52.0) L 10/26/17 06:20 Plt Count 265 K/mm3 (142-424) 10/26/17 06:20 BUN 24 mg/dL (7-18) H 10/26/17 06:20 Creatinine 1.06 mg/dL (0.70-1.30) 10/26/17 06:20 Estimated Creat Clear 83 mL/min (0-300) 10/26/17 06:20 VTE Score: 3 VTE Risk Level: Low Risk - Prophylaxis VTE Prophylaxis Ordered?: Yes Types of VTE Prophylaxis: TEDS Knee High Location of Applied Device: Bilateral Lower Extremeties
--- NOTE | 2017-10-26 13:32 | CT_ITS ---
CT head/brain wo/w con HISTORY: Lung mass highly suggestive of cancer, evaluate for metastatic disease ITS.REASON: lung mass ORDERING PHYSICIAN: Anders Li MD PATIENT AGE: 67 years COMPARISON: None TECHNIQUE: Axial images obtained without and with contrast. Brain and bone windows reviewed. FINDINGS: No midline shift, mass effect, intracranial hemorrhage, hydrocephalus, or extra-axial fluid collection is evident. No enhancing lesions are evident. There is some mild atrophy with mild periventricular ischemic gliotic change. The calvarium has an unremarkable appearance. No mastoid effusion. No sinus air-fluid levels.. IMPRESSION: 1. No evidence of metastatic disease. 2. No acute intracranial findings.
--- NOTE | 2017-10-26 13:33 | HMH.HP ---
*Admission Date: 10/26/17 *Chief complaint: heartburn, left chest discomfort *History of present illness: 67 yr old male with recently diagnosed CAD s/p 3 stents placed on 10/15/17 presented to the ED last evening with what he calls heartburn . He has been having this for several days but last night he felt like it was causing him to be unable to take a big breath and he felt increasingly SOA. He had been started on PO pantoprazole by Dr Kennedy earlier this week and Dr Li had started him on azithromycin and prednisone PO for acute respiratory symptoms but neither of these interventions have symptomatically helped him. In the ED he was found to have a LEFT upper lobe pnuemonia, possibly postobstructive, and he was admitted for management. This morning he still reports some discomfort but improved overall since getting pepcid IV in the ED. [facility] History I have reviewed the patient's past medical history: Yes Medical History: Reports:: Atherosclerotic Heart Disease, Hyperlipidemia, Hypertension, Myocardial Infarction Denies:: Diabetes Mellitus Type 1, Diabetes Mellitus Type 2 Other Medical History: Reports: Arthritis Comment: inflammatory, on MTX weekly Other Surgeries: Yes: Coronary Stent, Hernia Repair, Other (C, Eye Sx) - *Social History Smoking Status: Former smoker #Yrs smoked (if former smoker): 33 Smoking End Date: around age 47 Alcohol Intake: never Occupational Status: employed Household Members: none - Psychiatric History Expresses thoughts of harming self/others: None Suicide Plan Description: No Plan *Family Hx:: Cancer, Diabetes, Heart Attack, Hypertension Review of Systems - Review of Systems Review of systems:: pertinent systems reviewed and negative unless documented below - Constitutional Reports fatigue, Denies anorexia, Denies fever(s) - *Cardiovascular Reports chest pain at rest, Reports shortness of breath, Denies chest pain with activity, Denies foot swelling, Denies radiating jaw, neck or arm pain - *Respiratory Reports chest congestion, Reports cough, Reports shortness of breath, Reports pain with cough, Denies coughing up blood - *Gastrointestinal Reports belching, Reports bloating, Denies abdominal pain, Denies change in bowel habits - *Genitourinary Denies difficulty urinating - *Musculoskeletal Reports joint pain - *Neurologic Denies abnormal movements, Denies confusion, Denies numbness, Denies seizure-like activity, Denies dizziness Meds Home Medications Medication Instructions Recorded Confirmed Type predniSONE [Prednisone 5mg 20 mg PO DAILY 10/15/17 10/26/17 History Tab] Aspirin [Aspirin 81mg EC Tab] 81 mg PO DAILY 10/16/17 10/25/17 History Atorvastatin Calcium [Atorvastatin 40 mg PO HS 10/16/17 10/25/17 History 40mg Tab] Ticagrelor [Brilinta 90mg Tablet] 90 mg PO BID 10/16/17 10/25/17 History benzonatate 100 mg capsule 100 mg PO TID 10/23/17 10/26/17 History Lisinopril [Prinivil 20mg Tablet] 40 mg PO DAILY 10/25/17 10/26/17 History Metoprolol Succinate 25 mg PO QHS 10/25/17 10/25/17 History Pantoprazole Sodium [Protonix 40mg 40 mg PO QAM 10/25/17 10/25/17 History tablet] Latanoprost [Xalatan 0.005% Ophth 1 drop OP DAILY 10/26/17 10/26/17 History Soln 2.5mL] Nabumetone [Nabumetone] 750 mg PO BID 10/26/17 10/26/17 History hydroCHLOROthiazide [HCTZ 25mg 25 mg PO DAILY 10/26/17 10/26/17 History tab] metHOTREXate sodium [metHOTREXate 0 mg PO WEEKLY 10/26/17 10/26/17 History 2.5mg Tablet] Allergies Allergy/AdvReac Type Severity Reaction Status Date / Time No Known Allergies Allergy Verified 10/25/17 21:36 Exam Vital signs and Labs for Last 24 Hours: Temp Pulse Resp BP Pulse Ox 97.7 F 75 18 110/72 97 10/26/17 11:47 10/26/17 11:47 10/26/17 11:47 10/26/17 11:47 10/26/17 11:47 Laboratory Results - last 24 hr 10/26/17 06:20: WBC 6.2, RBC 3.89 L, Hgb 11.7 L D, Hct 34.5 L, MCV 88.6, MCH 29.7, MCHC 33.
--- NOTE | 2017-10-26 13:36 | P.HP_ITS ---
*Admission Date: 10/26/17 *Chief complaint: heartburn, left chest discomfort *History of present illness: 67 yr old male with recently diagnosed CAD s/p 3 stents placed on 10/15/17 presented to the ED last evening with what he calls heartburn . He has been having this for several days but last night he felt like it was causing him to be unable to take a big breath and he felt increasingly SOA. He had been started on PO pantoprazole by Dr Kennedy earlier this week and Dr Li had started him on azithromycin and prednisone PO for acute respiratory symptoms but neither of these interventions have symptomatically helped him. In the ED he was found to have a LEFT upper lobe pnuemonia, possibly postobstructive, and he was admitted for management. This morning he still reports some discomfort but improved overall since getting pepcid IV in the ED. [facility] History I have reviewed the patient's past medical history: Yes Medical History: Reports:: Atherosclerotic Heart Disease, Hyperlipidemia, Hypertension, Myocardial Infarction Denies:: Diabetes Mellitus Type 1, Diabetes Mellitus Type 2 Other Medical History: Reports: Arthritis Comment: inflammatory, on MTX weekly Other Surgeries: Yes: Coronary Stent, Hernia Repair, Other (C, Eye Sx) - *Social History Smoking Status: Former smoker #Yrs smoked (if former smoker): 33 Smoking End Date: around age 47 Alcohol Intake: never Occupational Status: employed Household Members: none - Psychiatric History Expresses thoughts of harming self/others: None Suicide Plan Description: No Plan *Family Hx:: Cancer, Diabetes, Heart Attack, Hypertension Review of Systems - Review of Systems Review of systems:: pertinent systems reviewed and negative unless documented below - Constitutional Reports fatigue, Denies anorexia, Denies fever(s) - *Cardiovascular Reports chest pain at rest, Reports shortness of breath, Denies chest pain with activity, Denies foot swelling, Denies radiating jaw, neck or arm pain - *Respiratory Reports chest congestion, Reports cough, Reports shortness of breath, Reports pain with cough, Denies coughing up blood - *Gastrointestinal Reports belching, Reports bloating, Denies abdominal pain, Denies change in bowel habits - *Genitourinary Denies difficulty urinating - *Musculoskeletal Reports joint pain - *Neurologic Denies abnormal movements, Denies confusion, Denies numbness, Denies seizure- like activity, Denies dizziness Meds Home Medications Medication Instructions Recorded Confirmed Type predniSONE [Prednisone 5mg 20 mg PO DAILY 10/15/17 10/26/17 History Tab] Aspirin [Aspirin 81mg EC Tab] 81 mg PO DAILY 10/16/17 10/25/17 History Atorvastatin Calcium [Atorvastatin 40 mg PO HS 10/16/17 10/25/17 History 40mg Tab] Ticagrelor [Brilinta 90mg Tablet] 90 mg PO BID 10/16/17 10/25/17 History benzonatate 100 mg capsule 100 mg PO TID 10/23/17 10/26/17 History Lisinopril [Prinivil 20mg Tablet] 40 mg PO DAILY 10/25/17 10/26/17 History Metoprolol Succinate 25 mg PO QHS 10/25/17 10/25/17 History Pantoprazole Sodium [Protonix 40mg 40 mg PO QAM 10/25/17 10/25/17 History tablet] Latanoprost [Xalatan 0.005% Ophth 1 drop OP DAILY 10/26/17 10/26/17 History Soln 2.5mL] Nabumetone [Nabumetone] 750 mg PO BID 10/26/17 10/26/17 History hydroCHLOROthiazide [HCTZ 25mg 25 mg PO DAILY 10/26/17 10/26/17 History tab] metHOTREXate sodium [metHOTREXate 0 mg PO WEEKLY 10/26/17 10/26/17
--- NOTE | 2017-10-26 17:04 | PC.NURSE ---
PATIENT HAS BEEN RESTING IN BED MOST OF THE DAY WITH FAMILY AT BEDSIDE. PATIENT HAS NOT COMPLAINED OF ANY PAIN TODAY, BUT HAS COMPLAINED OF ACID REFLUX, MD NOTIFIED AND NEW ORDERS WERE GIVEN FOR 30ML MAALOX , ONE TIME ORDER. PATIENT STATES THAT HELPS HIM. PATIENTS VITAL SIGNS HAVE BEEN STABLE THIS SHIFT , LUNG SOUNDS ARE WHEEZES TO LEFT UPPER LUNG. PATIENT DENIES ANY NEEDS AT THIS TIME, NO DISTRESS NOTED, BREATHING IS EVEN AND NON LABORED. WILL CONTINUE TO MONITOR.
--- NOTE | 2017-10-26 20:54 | PC.NURSE ---
(abril) notified @ 2041 of pt requesting something to help him sleep and relax. Dr. Jules stated he would look into his chart. No new orders at this time.
[2017-10-27] VITALS: BP 110/71; PULSE 78; RESP 20; TEMP 35.9; O2SAT 96
--- NOTE | 2017-10-27 03:37 | PC.NURSE ---
SINCE ADMINISTRATION OF PO ATIVAN PT HAS RESTED VERY WELL. DURING 2099 MEDICATION ADMINISTRATION, PT STATED THAT HE TOOK HIS NORMAL NIGHT TIME MEDICATIONS THAT WERE BROUGHT FROM HOME WITHOUT NURSE KNOWLEDGE OR SUPERVISION. PT EDUCATED THAT ALL MEDICATIONS ADMINISTERED SHOULD BE ADMINISTERED PER NURSE. PT REFUSED XALATAN EYE DROPS, STATES HE TAKES THEM IN MORNING AND NOT AT NIGHT. PT FAMILY AT BEDSIDE THROUGHOUT ENTIRE SHIFT. PT HAD EXPIRATORY WHEEZES IN BLL UPON AUSCULTATION. PT REFUSES TO WEAR TEDS. PT BOWEL SOUNDS ACTIVE. VSS. NO SIGNS OF ACUTE DISTRESS NOTED AT THIS TIME., WILL CONTINUE TO MONITOR.
[2017-10-27 04:00] VITALS: BP 116/71; PULSE 75; RESP 18; TEMP 36.5; O2SAT 96
[2017-10-27 06:25] VITALS: PULSE 82; PULSE 84
--- NOTE | 2017-10-27 07:10 | HMH.DCSUM ---
General - General Admission date: 10/26/17 Discharge date: 10/27/17 HPI HPI: 67 yr old male with recently diagnosed CAD s/p 3 stents placed on 10/15/17 presented to the ED last evening with what he calls heartburn . He has been having this for several days but last night he felt like it was causing him to be unable to take a big breath and he felt increasingly SOA. He had been started on PO pantoprazole by Dr Kennedy earlier this week and Dr Li had started him on azithromycin and prednisone PO for acute respiratory symptoms but neither of these interventions have symptomatically helped him. In the ED he was found to have a LEFT upper lobe pnuemonia, possibly postobstructive, and he was admitted for management. This morning he still reports some discomfort but improved overall since getting pepcid IV in the ED. Objective Vital signs: Temp Pulse Resp BP Pulse Ox 97.7 F 75 18 116/71 96 10/27/17 04:00 10/27/17 04:00 10/27/17 04:00 10/27/17 04:00 10/27/17 04:00 Narrative: Patient appears well. Lung exam is significant for rhonchi primarily on the left with faint expiratory wheeze. Heart has a regular rate and rhythm Hospital Course Hospital Course: Patient was admitted for treatment of community-acquired pneumonia and chest x-ray was interpreted as a left lung mass with possible postobstructive pneumonia/pneumonitis. CT scan of the chest was performed which confirmed the presence of a mass with postobstructive pneumonia and not amenable to percutaneous CT-guided biopsy. Dr. Devlin was contacted and made aware of the patient and he will see the patient in his office later this week. Patient was monitored for an additional 24 hours to make sure he did not develop an oxygen requirement or fever. When this did not happen he was discharged home. Patient will keep his regularly scheduled follow-up appointment with Dr. Franks on SaturdayOctober 29. Outpatient follow-up with Dr. Devlin will also be arranged. Results Labs on day of discharge: Labs from last 24 hours 10/26/17 10/26/17 06:20 06:20 Hgb 11.7 L D Sodium 142 Potassium 3.4 L Chloride 106 Carbon Dioxide 28 Anion Gap 11.4 BUN 24 H Creatinine 1.06 Estimated Creat Clear 83 Estimated GFR 70 Est GFR ( Amer) 84 Glucose 78 D DS: Diagnosis - Discharge Diagnosis (1) Mass of upper lobe of left lung Status: Acute (2) Postobstructive pneumonia Status: Acute Meds Home Medications Medication Instructions Recorded Confirmed Type predniSONE [Prednisone 5mg 5 mg PO DAILYP PRN 10/15/17 10/26/17 History Tab] Aspirin [Aspirin 81mg EC Tab] 81 mg PO DAILY 10/16/17 10/25/17 History Atorvastatin Calcium [Atorvastatin 40 mg PO HS 10/16/17 10/25/17 History 40mg Tab] Ticagrelor [Brilinta 90mg Tablet] 90 mg PO BID 10/16/17 10/25/17 History benzonatate 100 mg capsule 100 mg PO TID 10/23/17 10/26/17 History Lisinopril [Prinivil 20mg Tablet] 20 mg PO DAILY 10/25/17 10/26/17 History Metoprolol Succinate 25 mg PO QHS 10/25/17 10/25/17 History Pantoprazole Sodium [Protonix 40mg 40 mg PO QAM 10/25/17 10/25/17 History tablet] Latanoprost [Xalatan 0.005% Ophth 1 drop OP HS 10/26/17 10/26/17 History Soln 2.5mL] Nabumetone [Nabumetone] 750 mg PO BIDP PRN 10/26/17 10/26/17 History Timolol Maleate [Timoptic 0.5% 1 drop OP BID 10/26/17 10/26/17 History opth soln 5mL] metHOTREXate sodium [metHOTREXate 25 mg PO WEEKLY 10/26/17 10/26/17 History 2.5mg Tablet] Allergies Allergy/AdvReac Type Severity Reaction Status Date / Time No Known Allergies Allergy Verified 10/25/17 21:36 Discharge Plan - Patient Discharge Instructions ACTIVITY: Continue current activity DIET: continue same diet - Follow up Plan Follow up with: Anders Li MD [Primary Care Provider] - 10/29/17 Disposition: Home, Self-Half-Way Medications: Home Medications Medicatio
--- NOTE | 2017-10-27 07:12 | PC.NURSE ---
REPORT GIVEN TO Olu CEDENO RN
--- NOTE | 2017-10-27 07:13 | P.DS_ITS ---
General - General Admission date: 10/26/17 Discharge date: 10/27/17 HPI HPI: 67 yr old male with recently diagnosed CAD s/p 3 stents placed on 10/15/17 presented to the ED last evening with what he calls heartburn . He has been having this for several days but last night he felt like it was causing him to be unable to take a big breath and he felt increasingly SOA. He had been started on PO pantoprazole by Dr Kennedy earlier this week and Dr Li had started him on azithromycin and prednisone PO for acute respiratory symptoms but neither of these interventions have symptomatically helped him. In the ED he was found to have a LEFT upper lobe pnuemonia, possibly postobstructive, and he was admitted for management. This morning he still reports some discomfort but improved overall since getting pepcid IV in the ED. Objective Vital signs: Temp Pulse Resp BP Pulse Ox 97.7 F 75 18 116/71 96 10/27/17 04:00 10/27/17 04:00 10/27/17 04:00 10/27/17 04:00 10/27/17 04:00 Narrative: Patient appears well. Lung exam is significant for rhonchi primarily on the left with faint expiratory wheeze. Heart has a regular rate and rhythm Hospital Course Hospital Course: Patient was admitted for treatment of community-acquired pneumonia and chest x- ray was interpreted as a left lung mass with possible postobstructive pneumonia/ pneumonitis. CT scan of the chest was performed which confirmed the presence of a mass with postobstructive pneumonia and not amenable to percutaneous CT- guided biopsy. Dr. Devlin was contacted and made aware of the patient and he will see the patient in his office later this week. Patient was monitored for an additional 24 hours to make sure he did not develop an oxygen requirement or fever. When this did not happen he was discharged home. Patient will keep his regularly scheduled follow-up appointment with Dr. Franks on SaturdayOctober 29. Outpatient follow-up with Dr. Devlin will also be arranged. Results Labs on day of discharge: Labs from last 24 hours 10/26/17 10/26/17 06:20 06:20 Hgb 11.7 L D Sodium 142 Potassium 3.4 L Chloride 106 Carbon Dioxide 28 Anion Gap 11.4 BUN 24 H Creatinine 1.06 Estimated Creat Clear 83 Estimated GFR 70 Est GFR ( Amer) 84 Glucose 78 D DS: Diagnosis - Discharge Diagnosis (1) Mass of upper lobe of left lung Status: Acute (2) Postobstructive pneumonia Status: Acute Meds Home Medications Medication Instructions Recorded Confirmed Type predniSONE [Prednisone 5mg 5 mg PO DAILYP PRN 10/15/17 10/26/17 History Tab] Aspirin [Aspirin 81mg EC Tab] 81 mg PO DAILY 10/16/17 10/25/17 History Atorvastatin Calcium [Atorvastatin 40 mg PO HS 10/16/17 10/25/17 History 40mg Tab] Ticagrelor [Brilinta 90mg Tablet] 90 mg PO BID 10/16/17 10/25/17 History benzonatate 100 mg capsule 100 mg PO TID 10/23/17 10/26/17 History Lisinopril [Prinivil 20mg Tablet] 20 mg PO DAILY 10/25/17 10/26/17 History Metoprolol Succinate 25 mg PO QHS 10/25/17 10/25/17 History Pantoprazole Sodium [Protonix 40mg 40 mg PO QAM 10/25/17 10/25/17 History tablet] Latanoprost [Xalatan 0.005% Ophth 1 drop OP HS 10/26/17 10/26/17 History Soln 2.5mL] Nabumetone [Nabumetone] 750 mg PO BI
[2017-10-27 08:00] VITALS: BP 128/82; PULSE 89; RESP 16; TEMP 36.8; O2SAT 96
== END 2017-10-27 13:30 | disposition home or self-care (01) ==
LOC: ER 22:49 → 2ND 10-26 00:16
PROVIDERS: Admitting Provider Emergency Medicine; Emergency Provider Emergency Medicine; PCP Internal Medicine Adolescent Medicine; Visit Provider Internal Medicine Adolescent Medicine
DX: J18.9 Pneumonia, unspecified organism (principal); I10 Essential (primary) hypertension; E78.5 Hyperlipidemia, unspecified; I25.10 Atherosclerotic heart disease of native coronary artery without angina pectoris; I25.2 Old myocardial infarction; R91.8 Other nonspecific abnormal finding of lung field; M19.90 Unspecified osteoarthritis, unspecified site; R10.13 Epigastric pain; Z83.3 Family history of diabetes mellitus; Z80.9 Family history of malignant neoplasm, unspecified; Z95.5 Presence of coronary angioplasty implant and graft; Z87.891 Personal history of nicotine dependence; Z82.49 Family history of ischemic heart disease and other diseases of the circulatory system; Z79.82 Long term (current) use of aspirin; Z79.52 Long term (current) use of systemic steroids; Z79.899 Other long term (current) drug therapy
CPT/HCPCS: 36415; 70470; 71046; 71270; 80048; 80053; 82550; 82553; 83605; 83880; 84484; 85025; 87040; 87070; 87077; 87186; 87205; 93005; 94640; 94761; 96365; 96367; 96374; 96375; 96376; 99284; G0378; J0456; J1956; Q9967

== ENCOUNTER 2017-12-17 11:15 | Inpatient (IN) ==
[2017-12-17 13:39] LABS: Albumin Level 2.6 gm/dL (3.4-5.0); Albumin/Globulin Ratio 0.7 (1.1-1.8); Anion Gap 12.8 mEq/L (5-15); Bilirubin,Total 0.9 mg/dL (0.2-1.0); Calcium 8.7 mg/dL (8.5-10.1); Potassium 3.8 mmoL/L (3.5-5.1); Total Protein,Serum 6.6 gm/dL (6.4-8.2)
[2017-12-17 13:44] LABS: Basophils % 0.5 % (0.1-2.0); Hematocrit 28.9 % (42.0-52.0); Hemoglobin 9.1 g/dL (14.1-18.0); Lymphocytes # 0.8 K/mm3 (0.7-4.5); Lymphocytes % 39.4 K/mm3 (10-50); Mean Corpuscular HGB Conc 31.4 g/dL (31.8-35.4); Mean Corpuscular Hemoglobin 27.6 pg (27.0-31.2); Mean Corpuscular Volume 87.9 fl (80-94); Mean Platelet Volume 7.7 fl (7.4-10.4); Monocytes # 0.3 K/mm3 (0.1-1.0); Monocytes % 14.3 % (1.7-9.3); Neutrophils # 0.9 K/mm3 (1.8-7.8); Neutrophils % 44.9 % (37.0-80.0); Platelet Count 267 K/mm3 (142-424); Red Blood Count 3.28 M/mm3 (4.60-6.20); Red Cell Distribution Width 18.3 % (11.5-17.5)
--- NOTE | 2017-12-17 21:10 | History & Physical Report ---
*Admission Date: 12/17/17 *Chief complaint: Cough and fever *History of present illness: 67-year-old white male with recently diagnosed lung cancer, yesterday began having cough and congestion, has had green/milky sputum production, started on doxycycline as an outpatient. Saw him in the office today, fever of 101.5, flu testing negative, lung exam abnormal, patient weak, 4 pound weight loss, evidence of dehydration. Admitted to hospital for IV therapy, hydration and increased pulmonary toilet. [facility] History Medical History: Reports:: Atherosclerotic Heart Disease, Cancer, Hyperlipidemia , Hypertension, Myocardial Infarction Denies:: Diabetes Mellitus Type 1, Diabetes Mellitus Type 2, MRSA Other Medical History: Reports: Arthritis Comment: lung cancer - doing chemo with [facility]. Next cycle due December 30. Other Surgeries: Yes: Coronary Stent, Hernia Repair, Other Amputation: No Fractures: No - *Social History Educational Level: Completed High School Smoking Status: Former smoker #Yrs smoked (if former smoker): 33 Alcohol Intake: never Alcohol Intake Frequency:: other Occupational Status: employed Housing: house Household Members: significant other, none - Psychiatric History Expresses thoughts of harming self/others: None Suicide Plan Description: No Plan *Family Hx:: Diabetes, Hypertension Review of Systems - Review of Systems Review of systems:: unable to obtain, other, pertinent systems reviewed and negative unless documented below - Constitutional Reports chills, Reports fever(s), Reports headache(s) - *Cardiovascular Reports shortness of breath, Reports shortness of breath with activity - *Respiratory Reports change in phlegm color, Reports chest congestion, Reports cough - *Genitourinary Denies difficulty urinating - *Musculoskeletal Denies abnormal walking - *Neurologic Denies abnormal walking, Denies abnormal speech Meds Home Medications Medication Instructions Recorded Confirmed Type Aspirin [Aspirin 81mg EC Tab] 81 mg PO DAILY 10/16/17 12/17/17 History Atorvastatin Calcium [Atorvastatin 40 mg PO HS 10/16/17 12/17/17 History 40mg Tab] Pantoprazole Sodium [Protonix 40mg 40 mg PO QAM 10/25/17 12/17/17 History tablet] Latanoprost [Xalatan 0.005% Ophth 1 drop OP HS 10/26/17 12/17/17 History Soln 2.5mL] Timolol Maleate [Timoptic 0.5% 1 drop OP BID 10/26/17 12/17/17 History opth soln 5mL] mirtazapine 15 mg tablet 15 mg PO QHS 12/04/17 12/17/17 History LORazepam [Ativan 0.5mg tablet] 0.5 mg PO NEEDED PRN 12/17/17 12/17/17 History Allergies Allergy/AdvReac Type Severity Reaction Status Date / Time No Known Allergies Allergy Verified 10/25/17 21:36 Exam Vital signs and Labs for Last 24 Hours: Temp Pulse Resp BP Pulse Ox 100.1 F H 102 H 22 117/79 95 12/17/17 12:23 12/17/17 19:32 12/17/17 12:23 12/17/17 12:23 12/17/17 18:25 Laboratory Results - last 24 hr 12/17/17 13:10: WBC 2.0 L, RBC 3.28 L, Hgb 9.1 L, Hct 28.9 L, MCV 87.9, MCH 27.6 , MCHC 31.4 L, RDW 18.3 H, Plt Count 267, MPV 7.7, Neut % (Auto) 44.9, Lymph % ( Auto) 39.4, [place] % (Auto) 14.3 H, Eos % (Auto) 1.0, Baso % (Auto) 0.5, Neut # ( Auto) 0.9 L*, Lymph # (Auto) 0.8, [place] # (Auto) 0.3, Eos # (Auto) 0.0, Baso # ( Auto) 0.0 12/17/17 13:10: Sodium 136, Potassium 3.8, Chloride 103, Carbon Dioxide 24, Anion Gap 12.8, BUN 16, Creatinine 0.86, Estimated Creat Clear 83, Estimated GFR 89, Est GFR ( Amer) 107, Glucose 117 H, Calcium 8.7, Total Bilirubin 0.9, AST 14 L, ALT 26, Alkaline Phosphatase 133 H, Total Protein 6.6, Albumin 2.6 L, Globulin 4.0 H, Albumin/Globulin Ratio 0.7 L 12/17/17 13:10: Mycoplasma pneumon IgM Non-reactive I & O for Last 24 hours: Intake & Output 12/15/17 12/16/17 12/17/17 12/18/17 11:59 11:59 11:59 11:59 Intake Total 240 / 240 Output Total 400 / 400 Balance -160 / -160 Weight 181 lb 6 oz Narrative: Patient is alert, pleasant, appears dehydrated. Oropharynx is dry. Lungs have reduced air movement in the right lower lung field with rhonchi, also noted to have some crackles, no wheezes. Left side fairly clear. Abdomen soft and nontender, no edema. Heart rate regular without murmurs. Neurologic exam nonfocal. No JVD. H&P: Result - Labs Labs: Short CBC 12/17/17 Range/Units 13:10 WBC 2.0 L (4.8-10.8) K/mm3 Hgb 9.1 L (14.1-18.0) g/dL Hct 28.9 L (42.0-52.0) % Plt Count 267 (142-424) K/mm3 BMP 12/17/17 13:10 Sodium 136 Potassium 3.8 Chloride 103 Carbon Dioxide 24 BUN 16 Creatinine 0.86 Glucose 117 H Calcium 8.7 Liver Function 12/17/17 Range/Units 13:10 Total Bilirubin 0.9 (0.2-1.0) mg/dL AST 14 L (15-37) U/L ALT 26 (12-78) U/L Alkaline Phosphatase 133 H (46-116) U/L Albumin 2.6 L (3.4-5.0) gm/dL Assessment and Plan (1) Community acquired pneumonia Current visit: No Status: Acute Qualifiers: Laterality: left Lung location: unspecified part of lung Qualified Code(s ): J18.9 - Pneumonia, unspecified organism Category: Medical Code(s): J18.9 - Pneumonia, unspecified organism (2) Postobstructive pneumonia Current visit: No Status: Acute Category: Medical Code(s): J18.9 - Pneumonia, unspecified organism Plan will be to admit office coverage with Cleocin coverage for possible postobstructive pneumonia include anaerobic coverage. Check cultures. Check blood cultures, continue current medication. IV hydration and monitor labs.
--- NOTE | 2017-12-18 07:40 | Pharmacy Consult Notes ---
[facility] Pharmacy VTE Monitoring - Patient Demographics Admission date: 12/17/17 Report Date: 12/18/17 Time: 07:39 Allergies/Adverse Reactions: Patient Allergies No Known Allergies Allergy (Verified 10/25/17 21:36) Height: 1.83 m Weight: 82.27 kg - VTE Risk Labs: VTE Related Lab Results Hgb 9.1 g/dL (14.1-18.0) L 12/17/17 13:10 Hct 28.9 % (42.0-52.0) L 12/17/17 13:10 Plt Count 267 K/mm3 (142-424) 12/17/17 13:10 BUN 16 mg/dL (7-18) 12/17/17 13:10 Creatinine 0.86 mg/dL (0.70-1.30) 12/17/17 13:10 Estimated Creat Clear 83 mL/min (0-300) 12/17/17 13:10 Was VTE Risk Assessment Performed: Yes VTE Score: 4 VTE Risk Level: Low Risk - Prophylaxis VTE Prophylaxis Ordered?: Yes Types of VTE Prophylaxis: TEDS Knee High Location of Applied Device: Bilateral Lower Extremeties - VTE Diagnosis Confirmed Treatment or plan recommended: Continue Current Treatment
--- NOTE | 2017-12-18 08:18 | Progress Note ---
Internal Medicine - PN: Subj *Date: 12/18/17 *Time: 08:18 Interval history: Patient feels better, eating some this morning. Has coughed up some sputum. Exam Vital signs and Labs for Last 24 Hours: Temp Pulse Resp BP Pulse Ox 98.0 F 103 H 18 120/70 97 12/18/17 07:39 12/18/17 07:39 12/18/17 07:39 12/18/17 07:39 12/18/17 07:39 Laboratory Results - last 24 hr 12/17/17 13:10: WBC 2.0 L, RBC 3.28 L, Hgb 9.1 L, Hct 28.9 L, MCV 87.9, MCH 27.6 , MCHC 31.4 L, RDW 18.3 H, Plt Count 267, MPV 7.7, Neut % (Auto) 44.9, Lymph % ( Auto) 39.4, [place] % (Auto) 14.3 H, Eos % (Auto) 1.0, Baso % (Auto) 0.5, Neut # ( Auto) 0.9 L*, Lymph # (Auto) 0.8, [place] # (Auto) 0.3, Eos # (Auto) 0.0, Baso # ( Auto) 0.0 12/17/17 13:10: Sodium 136, Potassium 3.8, Chloride 103, Carbon Dioxide 24, Anion Gap 12.8, BUN 16, Creatinine 0.86, Estimated Creat Clear 83, Estimated GFR 89, Est GFR ( Amer) 107, Glucose 117 H, Calcium 8.7, Total Bilirubin 0.9, AST 14 L, ALT 26, Alkaline Phosphatase 133 H, Total Protein 6.6, Albumin 2.6 L, Globulin 4.0 H, Albumin/Globulin Ratio 0.7 L 12/17/17 13:10: Mycoplasma pneumon IgM Non-reactive I & O for Last 24 hours: Intake & Output 12/15/17 12/16/17 12/17/17 12/18/17 11:59 11:59 11:59 11:59 Intake Total 480 / 480 Output Total 400 / 400 Balance 80 / 80 Weight 181 lb 6 oz Narrative: Overall lung function is improved, better aeration, less crackles, heart rate regular, abdomen soft, oropharynx clear. Assessment and Plan (1) Community acquired pneumonia Current visit: No Status: Acute Qualifiers: Laterality: left Lung location: unspecified part of lung Qualified Code(s ): J18.9 - Pneumonia, unspecified organism Category: Medical Code(s): J18.9 - Pneumonia, unspecified organism (2) Postobstructive pneumonia Current visit: No Status: Acute Category: Medical Code(s): J18.9 - Pneumonia, unspecified organism - Assessment and plan all Dx Assessment and Plan for all problems:: Improving, continue therapy, continue IV antibiotics. Watch labs tomorrow morning. Watch cultures.
[2017-12-19 06:49] LABS: Basophils # 0.1 K/mm3 (0-0.2); Basophils % 0.8 % (0.1-2.0); Hematocrit 28.2 % (42.0-52.0); Hemoglobin 8.7 g/dL (14.1-18.0); Lymphocytes # 1.2 K/mm3 (0.7-4.5); Lymphocytes % 15.7 K/mm3 (10-50); Mean Corpuscular Hemoglobin 27.9 pg (27.0-31.2); Mean Corpuscular Volume 89.9 fl (80-94); Mean Platelet Volume 7.9 fl (7.4-10.4); Monocytes # 0.6 K/mm3 (0.1-1.0); Neutrophils # 5.7 K/mm3 (1.8-7.8); Neutrophils % 75.5 % (37.0-80.0); Platelet Count 456 K/mm3 (142-424); Red Blood Count 3.14 M/mm3 (4.60-6.20); Red Cell Distribution Width 17.9 % (11.5-17.5); White Blood Count 7.6 K/mm3 (4.8-10.8)
[2017-12-19 07:24] LABS: Albumin Level 2.3 gm/dL (3.4-5.0); Albumin/Globulin Ratio 0.6 (1.1-1.8); Bilirubin,Total 0.2 mg/dL (0.2-1.0); Calcium 8.9 mg/dL (8.5-10.1); Globulin 3.8 gm/dl (1.3-3.2); Total Protein,Serum 6.1 gm/dL (6.4-8.2)
[2017-12-19 07:52] VITALS: BP 109/66
--- NOTE | 2017-12-19 08:11 | Discharge Summary ---
General - General Admission date: 12/17/17 Discharge date: 12/19/17 HPI HPI: 67-year-old white male with recently diagnosed lung cancer, yesterday began having cough and congestion, has had green/milky sputum production, started on doxycycline as an outpatient. Saw him in the office today, fever of 101.5, flu testing negative, lung exam abnormal, patient weak, 4 pound weight loss, evidence of dehydration. Admitted to hospital for IV therapy, hydration and increased pulmonary toilet. Hospital Course Hospital Course: Patient was admitted, based on dual coverage for anaerobic pathogens with cefepime, ampicillin and clindamycin, also Pseudomonas was covered. Patient improved very nicely and over the next couple of days defervesced, white cell count improved slightly, and he coughed up quite a bit of sputum. This is pending for culture at the time of this dictation. He improved very nicely in regards to p.o. intake, hydration status improved. This morning he was doing well and back to baseline. He will be discharged home with the plan as indicated below. Objective Vital signs: Temp Pulse Resp BP Pulse Ox 97.7 F 101 H 20 109/66 97 12/19/17 07:51 12/19/17 07:51 12/19/17 07:51 12/19/17 07:51 12/19/17 07:51 Narrative: Patient is alert, oriented 3, not wearing oxygen, good oxygenation status. Lungs are much clearer, with only minimal rhonchi in the right middle lung field , good air movement. Heart rate regular, no edema, no clubbing, abdomen soft and nontender. Results Labs on day of discharge: Labs from last 24 hours 12/19/17 12/19/17 06:36 06:36 WBC 7.6 D RBC 3.14 L Hgb 8.7 L Hct 28.2 L MCV 89.9 MCH 27.9 MCHC 31.0 L RDW 17.9 H Plt Count 456 H D MPV 7.9 Neut % (Auto) 75.5 Lymph % (Auto) 15.7 [place] % (Auto) 8.0 Eos % (Auto) 0.0 L Baso % (Auto) 0.8 Neut # (Auto) 5.7 Lymph # (Auto) 1.2 [place] # (Auto) 0.6 Eos # (Auto) 0.0 Baso # (Auto) 0.1 Sodium 142 Potassium 4.0 Chloride 109 H Carbon Dioxide 25 Anion Gap 12.0 BUN 27 H D Creatinine 0.96 Estimated Creat Clear 83 Estimated GFR 78 Est GFR ( Amer) 95 Glucose 210 H Calcium 8.9 Total Bilirubin 0.2 AST 20 D ALT 37 D Alkaline Phosphatase 129 H Total Protein 6.1 L Albumin 2.3 L Globulin 3.8 H Albumin/Globulin Ratio 0.6 L Preliminary micro results at discharge 12/18/17 08:15 Sputum Culture - Preliminary Sputum - Expectorated Sputum 12/17/17 13:10 Blood Culture - Preliminary Blood NO GROWTH AFTER 24 HOURS 12/17/17 13:10 Blood Culture - Preliminary Blood NO GROWTH AFTER 24 HOURS DS: Diagnosis - Discharge Diagnosis (1) Community acquired pneumonia Status: Acute (2) Postobstructive pneumonia Status: Acute Discharge Plan - Patient Discharge Instructions ACTIVITY: Continue current activity DIET: continue same diet - Follow up Plan Follow up with: Anders Li MD [Primary Care Provider] - 12/24/17 Disposition: Home, [facility] Medications: Home Medications Medication Instructions Recorded Confirmed Type Aspirin [Aspirin 81mg EC Tab] 81 mg PO DAILY 10/16/17 12/17/17 History Atorvastatin Calcium [Atorvastatin 40 mg PO HS 10/16/17 12/17/17 History 40mg Tab] Pantoprazole Sodium [Protonix 40mg 40 mg PO DAILY 10/25/17 12/18/17 History tablet] Latanoprost [Xalatan 0.005% Ophth 1 drop OP HS 10/26/17 12/17/17 History Soln 2.5mL] Timolol Maleate [Timoptic 0.5% 1 drop OP BID 10/26/17 12/17/17 History opth soln 5mL] mirtazapine 15 mg tablet 15 mg PO QHS 12/04/17 12/17/17 History LORazepam [Ativan 0.5mg tablet] 0.5 mg PO TIDP PRN 12/17/17 12/18/17 History Prescriptions/Medication Reconciliation: New Doxycycline Hyclate 100 mg PO BID 7 Days #14 tablet. Clindamycin HCl [Clindamycin 300mg Cap] 300 mg PO TID 7 Days #21 cap Continue mirtazapine 15 mg tablet 15 mg PO QHS metoprolol succinate ER 25 mg tablet,extended release 24 hr 25 mg PO DAILY # 30 tab clopidogrel 75 mg tablet 75 mg PO DAILY #30 tab Aspirin [Aspirin 81mg EC Tab] 81 mg PO DAILY Latanoprost [Xalatan 0.005% Ophth Soln 2.5mL] 1 drop OP HS Atorvastatin Calcium [Atorvastatin 40mg Tab] 40 mg PO HS Pantoprazole Sodium [Protonix 40mg tablet] 40 mg PO DAILY Timolol Maleate [Timoptic 0.5% opth soln 5mL] 1 drop OP BID LORazepam [Ativan 0.5mg tablet] 0.5 mg PO TIDP PRN PRN Reason: Anxiety
== END 2017-12-19 09:24 | disposition home or self-care (01) ==
LOC: 2ND 11:57
PROVIDERS: ADMIT Internal Medicine Adolescent Medicine; ATTEND Internal Medicine Adolescent Medicine

== ENCOUNTER 2018-09-03 13:29 | Observation (INO) ==
[2018-09-03 15:15] LABS: Basophils # 0.1 K/mm3 (0-0.2); Basophils % 0.6 % (0.1-2.0); Eosinophils % 0.4 % (0.1-12.0); Hematocrit 41.3 % (42.0-52.0); Hemoglobin 13.6 g/dL (14.1-18.0); Lymphocytes # 1.4 K/mm3 (0.7-4.5); Lymphocytes % 14.6 % (10-50); Mean Corpuscular HGB Conc 32.9 g/dL (31.8-35.4); Mean Corpuscular Hemoglobin 28.3 pg (27.0-31.2); Mean Platelet Volume 7.2 fl (7.4-10.4); Monocytes # 0.5 K/mm3 (0.1-1.0); Monocytes % 4.7 % (1.7-9.3); Neutrophils # 7.6 K/mm3 (1.8-7.8); Neutrophils % 79.6 % (37.0-80.0); Platelet Count 201 K/mm3 (142-424); Red Cell Distribution Width 15.7 % (11.5-17.5); White Blood Count 9.6 K/mm3 (4.8-10.8)
[2018-09-03 15:31] LABS: Alanine Aminotransferase 32 U/L (12-78); Albumin Level 3.4 gm/dL (3.4-5.0); Alkaline Phosphatase 76 U/L (46-116); Anion Gap 15.7 mEq/L (5-15); Aspartate Amino Transferase 16 U/L (15-37); Bilirubin,Total 0.4 mg/dL (0.2-1.0); Blood Urea Nitrogen 15 mg/dL (7-18); Calcium 8.9 mg/dL (8.5-10.1); Carbon Dioxide 25 mmol/L (21.0-32.0); Chloride 106 mmol/L (98-107); Globulin 3.3 gm/dl (1.3-3.2); Glucose 142 mg/dL (74-106); Potassium 3.7 mmoL/L (3.5-5.1); Sodium 143 mmol/L (136-145); Total Protein,Serum 6.7 gm/dL (6.4-8.2)
[2018-09-03 18:45] LABS: Coronavirus 229E Not Detected (NotDetected); Coronavirus NL63 Not Detected (NotDetected); Coronavirus OC43 Not Detected (NotDetected); Coronovirus HKU1,PCR Not Detected (NotDetected)
--- NOTE | 2018-09-03 20:26 | History & Physical Report ---
*Admission Date: 09/03/18 *Chief complaint: Shortness of breath *History of present illness: 68 yr old male with known metastatic small-cell lung cancer presented to outpatient clinic today with complaint of new onset shortness of breath. He was outdoors working when he noticed symptoms and his son urged him to seek attention because of his extensive medical history. He has had occasional cough but complains more of drainage in his throat that is difficult to clear over the past couple of days. No fevers. With respect to lung cancer, he has recently stopped a study drug due to disease progression on scans done last week (lung and liver lesion per his report) and he is scheduled to resume chemotherapy again next week that is not associated with this recent study. He also has a history of coronary artery disease with stents being placed about 10 months ago. Last cardiology checkup was in February 2018 and he is due for 6 month follow-up in September. Denies chest pain and edema but he has noted some palpitations. At time of exam he had mild conversational dyspnea and multiple ectopic beats on auscultation, EKG with chronic changes and PACs and he was admitted for observation and additional workup. [facility] History Medical History: Reports:: Atherosclerotic Heart Disease, Cancer (Small cell lung cancer with mets to bone, liver, brain), Coronary Artery Disease, Hyperlipidemia, Hypertension, Myocardial Infarction Denies:: Diabetes Mellitus Type 1, Diabetes Mellitus Type 2, MRSA Other Medical History: Reports: Arthritis (rheumatoid), Chemotherapy, Glaucoma, Liver Disease, Radiation Therapy Other Surgeries: Yes: Coronary Stent, Hernia Repair, Other (lung biopsy) Amputation: No Fractures: No - *Social History Educational Level: Completed High School Smoking Status: Former smoker Tobacco Type: cigarettes #Yrs smoked (if former smoker): 33 Smoking End Date: 2007 Alcohol Intake: never Alcohol Intake Frequency:: other Occupational Status: employed Housing: house Household Members: none - Psychiatric History Expresses thoughts of harming self/others: None Suicide Plan Description: No Plan *Family Hx:: Diabetes, Hypertension Review of Systems - Review of Systems Review of systems:: pertinent systems reviewed and negative unless documented below - Constitutional Reports fatigue, Reports malaise, Denies fever(s), Denies weight loss - Eyes Denies discharge - ENT Reports post nasal drip, Denies difficulty swallowing, Denies ear pain, Denies nasal discharge, Denies sinus pressure, Denies sore throat - *Cardiovascular Reports shortness of breath, Reports shortness of breath with activity, Reports irregular heart rhythm, Denies chest pain, Denies generalized swelling, Denies leg swelling - *Respiratory Reports cough, Reports shortness of breath, Denies coughing up blood, Denies wheezing - *Gastrointestinal Denies abdominal pain, Denies change in bowel habits - *Genitourinary Denies difficulty urinating - *Musculoskeletal Reports back pain (severe, taking percocet and seeing pain management in [place]) - Integumentary/Breasts Reports rash - *Neurologic Reports radiating pain (related to back pain, chronic), Denies frequent falls, Denies weakness - Psychiatric Reports depression (situational with cancer diagnosis, on remeron for this and sleep) Meds Home Medications Medication Instructions Recorded Confirmed Type Aspirin [Aspirin 81mg EC Tab] 81 mg PO DAILY 10/16/17 09/03/18 History Atorvastatin Calcium [Atorvastatin 40 mg PO HS 10/16/17 09/03/18 History 40mg Tab] Pantoprazole Sodium [Protonix 40mg 40 mg PO DAILY 10/25/17 09/03/18 History tablet] Latanoprost [Xalatan 0.005% Ophth 1 drop OP HS 10/26/17 09/03/18 History Soln 2.5mL] Timolol Maleate [Timoptic 0.5% 1 drop OP BID 10/26/17 09/03/18 History opth soln 5mL] mirtazapine 15 mg tablet 15 mg PO QHS 12/04/17 09/03/18 History Calcium Carbonate 600 mg PO DAILY 09/03/18 09/03/18 History Clopidogrel Bisulfate [Plavix 75mg 75 mg PO DAILY 09/03/18 09/03/18 History Tab] Gabapentin [Gabapentin 300mg Cap] 300 mg PO QID 09/03/18 09/03/18 History Metoprolol Succinate 25 mg PO DAILY 09/03/18 09/03/18 History Nabumetone 750 mg PO BID 09/03/18 09/03/18 History Ondansetron [Ondansetron Odt 8mg 8 mg PO TIDP PRN 09/03/18 09/03/18 History Tab] Oxycodone HCl/Acetaminophen 7.5 - 325 each PO Q6HP PRN 09/03/18 09/03/18 History [Oxycodone W/Apap 325mg Tablet] predniSONE [Deltasone 10mg 10 mg PO DAILY 09/03/18 09/03/18 History tablet] Allergies Allergy/AdvReac Type Severity Reaction Status Date / Time No Known Allergies Allergy Verified 09/03/18 16:45 Exam Vital signs and Labs for Last 24 Hours: Temp Pulse Resp BP Pulse Ox 99.2 F 84 18 167/71 H 99 09/03/18 16:00 09/03/18 16:00 09/03/18 16:00 09/03/18 16:00 09/03/18 16:00 Laboratory Results - last 24 hr 09/03/18 14:55: WBC 9.6, RBC 4.80, Hgb 13.6 L, Hct 41.3 L, MCV 86.0, MCH 28.3, MCHC 32.9, RDW 15.7, Plt Count 201, MPV 7.2 L, Neut % (Auto) 79.6, Lymph % (Auto) 14.6, [place] % (Auto) 4.7, Eos % (Auto) 0.4, Baso % (Auto) 0.6, Neut # (Auto) 7.6, Lymph # (Auto) 1.4, [place] # (Auto) 0.5, Eos # (Auto) 0.0, Baso # (Auto) 0.1 09/03/18 14:55: Sodium 143, Potassium 3.7, Chloride 106, Carbon Dioxide 25, Anion Gap 15.7 H, BUN 15, Creatinine 0.91, Estimated Creat Clear 91, Estimated GFR 83, Est GFR ( Amer) 100, Glucose 142 H, Calcium 8.9, Magnesium 1.7, Total Bilirubin 0.4, AST 16, ALT 32, Alkaline Phosphatase 76, Troponin I < 0.02, Total Protein 6.7, Albumin 3.4, Globulin 3.3 H, Albumin/Globulin Ratio 1.0 L 09/03/18 14:55: D-Dimer 440 H* 09/03/18 16:55: Troponin I < 0.02 09/03/18 18:38: Chlamy pneumoniae PCR Not detected, Adenovirus (PCR) Not detected, B. pertussis DNA (PCR) Not detected, Coronavirus OC43 (PCR) Not detected, Coronavirus HKU1 (PCR) Not detected, Coronavirus 229E (PCR) Not detected, Coronavirus NL63 (PCR) Not detected, Human Metapneumovir PCR Not detected, Influenza A (H1) PCR Not detected, Influ A (H1N1/09) PCR Not detected, Influenza A (H3) PCR Not detected, Influenza Type A (PCR) Not detected, Influenza Type B (PCR) Not detected, M. pneumoniae (PCR) Not detected, Parainfluenza 1 (PCR) Not detected, Parainfluenza 2 (PCR) Not detected, Parainfluenza 3 (PCR) Not detected, Parainfluenza 4 (PCR) Not detected, RSV (PCR) Not detected, Entero/Rhino (PCR) Not detected I & O for Last 24 hours: Intake & Output 09/01/18 09/02/18 09/03/18 09/04/18 11:59 11:59 11:59 11:59 Intake Total 240 / 240 Balance 240 / 240 Weight 200 lb 8 oz - Constitutional mild distress, average body habitus, cooperative - *Routine HEENT Exam Head: Present: normocephalic Eye: Present: conjunctivae pink ENT: Present: mucous membranes moist, oropharynx clear, TM's clear bilaterally - *Routine Neck Exam Present: supple, swelling (bilateral supraclavicular) - *Routine Respiratory Exam Present: CTA bilaterally - *Routine Cardiovascular Exam Present: murmur, irregular rhythm - *Routine Abdominal Exam Present: soft, normoactive bowel sounds. Absent: tenderness, distended - *Routine Extremities Exam Present: pulses intact. Absent: edema - Routine Back/Spine/Pelvis Exam Back/Spine: Present: loss of lumbar lordosis (antalgia gait, slightly forward leaning due to pain) - *Routine Skin Exam Present: intact, warm - *Routine Neurological Exam Present: oriented X3 Assessment and Plan (1) PAC (premature atrial contraction) Current visit: Yes Status: Acute Category: Medical Code(s): I49.1 - Atrial premature depolarization (2) Shortness of breath Current visit: Yes Status: Acute Category: Medical Code(s): R06.02 - Shortness of breath (3) Small cell lung cancer, left upper lobe Current visit: Yes Status: Chronic Category: Medical Code(s): C34.12 - Malignant neoplasm of upper lobe, left bronchus or lung (4) Coronary artery disease Current visit: No Status: Chronic Category: Medical Code(s): I25.10 - Atherosclerotic heart disease of [place] coronary artery without angina pectoris (5) HLD (hyperlipidemia) Current visit: No Status: Chronic Qualifiers: Hyperlipidemia type: other hyperlipidemia Category: Medical Code(s): E78.5 - Hyperlipidemia, unspecified (6) Hypertension Current visit: No Status: Chronic Qualifiers: Hypertension type: essential hypertension Qualified Code(s): I10 - Essential (primary) hypertension Category: Medical Code(s): I10 - Essential (primary) hypertension - Assessment and plan all Dx Assessment and Plan for all problems:: Admit for observation of pulmonary status and telemetry. Follow serial enzymes, electrolytes, D-Dimer. Sputum and blood cultures due to immunosupression from chemotherapy. Supplemental oxygen for symptom relief and additional treatment as indicated. If workup is negative for acute process may need palliative care consult for symptom management in setting of advancing metastatic lung cancer
[2018-09-04 07:26] LABS: Basophils # 0.1 K/mm3 (0-0.2); Basophils % 0.6 % (0.1-2.0); Eosinophils # 0.1 K/mm3 (0.0-0.4); Eosinophils % 1.4 % (0.1-12.0); Hematocrit 40.2 % (42.0-52.0); Hemoglobin 12.9 g/dL (14.1-18.0); Lymphocytes # 1.9 K/mm3 (0.7-4.5); Lymphocytes % 21.6 % (10-50); Mean Corpuscular Hemoglobin 27.8 pg (27.0-31.2); Mean Corpuscular Volume 86.9 fl (80-94); Mean Platelet Volume 7.3 fl (7.4-10.4); Monocytes # 0.6 K/mm3 (0.1-1.0); Monocytes % 6.9 % (1.7-9.3); Neutrophils % 69.5 % (37.0-80.0); Platelet Count 172 K/mm3 (142-424); Red Blood Count 4.62 M/mm3 (4.60-6.20); White Blood Count 8.6 K/mm3 (4.8-10.8)
--- NOTE | 2018-09-04 07:39 | Pharmacy Consult Notes ---
[facility] Pharmacy VTE Monitoring - Patient Demographics Admission date: 09/03/18 Report Date: 09/04/18 Time: 07:38 Allergies/Adverse Reactions: Patient Allergies No Known Allergies Allergy (Verified 09/03/18 16:45) Height: 1.85 m Weight: 88.677 kg Patient Problems: Current Active Problems PAC (premature atrial contraction) (Acute) Shortness of breath (Acute) Small cell lung cancer, left upper lobe (Chronic) - VTE Risk Labs: VTE Related Lab Results Hgb 12.9 g/dL (14.1-18.0) L 09/04/18 06:44 Hct 40.2 % (42.0-52.0) L 09/04/18 06:44 Plt Count 172 K/mm3 (142-424) 09/04/18 06:44 BUN 15 mg/dL (7-18) 09/03/18 14:55 Creatinine 0.91 mg/dL (0.70-1.30) 09/03/18 14:55 Estimated Creat Clear 91 mL/min (50-200) 09/03/18 14:55 - Prophylaxis VTE Prophylaxis Ordered?: Yes Types of VTE Prophylaxis: TEDS Knee High Location of Applied Device: Bilateral Lower Extremeties - VTE Diagnosis Confirmed Treatment or plan recommended: Continue Current Treatment
[2018-09-04 07:49] LABS: Anion Gap 11.5 mEq/L (5-15); Calcium 8.3 mg/dL (8.5-10.1); Potassium 3.5 mmoL/L (3.5-5.1)
--- NOTE | 2018-09-04 08:45 | Discharge Summary ---
General - General Admission date:: 09/03/18 Discharge date: 09/04/18 HPI HPI: 68 yr old male with known metastatic small-cell lung cancer presented to outpatient clinic today with complaint of new onset shortness of breath. He was outdoors working when he noticed symptoms and his son urged him to seek attention because of his extensive medical history. He has had occasional cough but complains more of drainage in his throat that is difficult to clear over the past couple of days. No fevers. With respect to lung cancer, he has recently stopped a study drug due to disease progression on scans done last week (lung and liver lesion per his report) and he is scheduled to resume chemotherapy again next week that is not associated with this recent study. He also has a history of coronary artery disease with stents being placed about 10 months ago. Last cardiology checkup was in February 2018 and he is due for 6 month follow-up in September. Denies chest pain and edema but he has noted some palpitations. At time of exam he had mild conversational dyspnea and multiple ectopic beats on auscultation, EKG with chronic changes and PACs and he was admitted for observation and additional workup. Hospital Course Hospital Course: Patient was admitted. Overnight patient felt much better. He told me this morning that he has problems when he eats with some GERD symptoms that seem to be causing shortness of air. Echocardiogram preliminary report was unchanged, and cardiac enzymes were negative and telemetry monitoring overnight was unremarkable. Patient looks good this morning and will be discharged home. We had placed him on proton pump inhibitor a couple of months ago which she has not been taking. I will reestablish this and follow him up in the office in the next week. Objective Vital signs: Temp Pulse Resp BP Pulse Ox 97.8 F 79 18 145/90 H 96 09/04/18 08:00 09/04/18 08:00 09/04/18 08:00 09/04/18 08:00 09/04/18 08:00 Narrative: Patient is pleasant. Talkative. Oriented x3. Pulse rate regular. Lungs have good air expansion. Minimal rhonchi but this is at baseline. Abdomen soft, no hepatosplenic megaly. No clubbing, no cyanosis, no edema. Results Labs on day of discharge: Labs from last 24 hours 09/04/18 09/04/18 09/03/18 06:44 06:44 20:22 WBC 8.6 RBC 4.62 Hgb 12.9 L Hct 40.2 L MCV 86.9 MCH 27.8 MCHC 32.0 RDW 16.0 Plt Count 172 MPV 7.3 L Neut % (Auto) 69.5 Lymph % (Auto) 21.6 [place] % (Auto) 6.9 Eos % (Auto) 1.4 Baso % (Auto) 0.6 Neut # (Auto) 6.0 Lymph # (Auto) 1.9 [place] # (Auto) 0.6 Eos # (Auto) 0.1 Baso # (Auto) 0.1 D-Dimer Sodium 142 Potassium 3.5 Chloride 107 Carbon Dioxide 27 Anion Gap 11.5 BUN 12 Creatinine 0.77 Estimated Creat Clear 89 Estimated GFR 100 Est GFR ( Amer) 122 D Glucose 115 H Calcium 8.3 L Magnesium Total Bilirubin AST ALT Alkaline Phosphatase Troponin I < 0.02 Total Protein Albumin Globulin Albumin/Globulin Ratio Chlamy pneumoniae PCR Adenovirus (PCR) B. pertussis DNA (PCR) Coronavirus OC43 (PCR) Coronavirus HKU1 (PCR) Coronavirus 229E (PCR) Coronavirus NL63 (PCR) Human Metapneumovir PCR Influenza A (H1) PCR Influ A (H1N1/09) PCR Influenza A (H3) PCR Influenza Type A (PCR) Influenza Type B (PCR) M. pneumoniae (PCR) Parainfluenza 1 (PCR) Parainfluenza 2 (PCR) Parainfluenza 3 (PCR) Parainfluenza 4 (PCR) RSV (PCR) Entero/Rhino (PCR) 09/03/18 09/03/18 09/03/18 18:38 16:55 14:55 WBC RBC Hgb Hct MCV MCH MCHC RDW Plt Count MPV Neut % (Auto) Lymph % (Auto) [place] % (Auto) Eos % (Auto) Baso % (Auto) Neut # (Auto) Lymph # (Auto) [place] # (Auto) Eos # (Auto) Baso # (Auto) D-Dimer 440 H* Sodium Potassium Chloride Carbon Dioxide Anion Gap BUN Creatinine Estimated Creat Clear Estimated GFR Est GFR ( Amer) Glucose Calcium Magnesium Total Bilirubin AST ALT Alkaline Phosphatase Troponin I < 0.02 Total Protein Albumin Globulin Albumin/Globulin Ratio Chlamy pneumoniae PCR Not detected Adenovirus (PCR) Not detected B. pertussis DNA (PCR) Not detected Coronavirus OC43 (PCR) Not detected Coronavirus HKU1 (PCR) Not detected Coronavirus 229E (PCR) Not detected Coronavirus NL63 (PCR) Not detected Human Metapneumovir PCR Not detected Influenza A (H1) PCR Not detected Influ A (H1N1/) PCR Not detected Influenza A (H3) PCR Not detected Influenza Type A (PCR) Not detected Influenza Type B (PCR) Not detected M. pneumoniae (PCR) Not detected Parainfluenza 1 (PCR) Not detected Parainfluenza 2 (PCR) Not detected Parainfluenza 3 (PCR) Not detected Parainfluenza 4 (PCR) Not detected RSV (PCR) Not detected Entero/Rhino (PCR) Not detected 09/03/18 09/03/18 14:55 14:55 WBC 9.6 RBC 4.80 Hgb 13.6 L Hct 41.3 L MCV 86.0 MCH 28.3 MCHC 32.9 RDW 15.7 Plt Count 201 MPV 7.2 L Neut % (Auto) 79.6 Lymph % (Auto) 14.6 [place] % (Auto) 4.7 Eos % (Auto) 0.4 Baso % (Auto) 0.6 Neut # (Auto) 7.6 Lymph # (Auto) 1.4 [place] # (Auto) 0.5 Eos # (Auto) 0.0 Baso # (Auto) 0.1 D-Dimer Sodium 143 Potassium 3.7 Chloride 106 Carbon Dioxide 25 Anion Gap 15.7 H BUN 15 Creatinine 0.91 Estimated Creat Clear 91 Estimated GFR 83 Est GFR ( Amer) 100 Glucose 142 H Calcium 8.9 Magnesium 1.7 Total Bilirubin 0.4 AST 16 ALT 32 Alkaline Phosphatase 76 Troponin I < 0.02 Total Protein 6.7 Albumin 3.4 Globulin 3.3 H Albumin/Globulin Ratio 1.0 L Chlamy pneumoniae PCR Adenovirus (PCR) B. pertussis DNA (PCR) Coronavirus OC43 (PCR) Coronavirus HKU1 (PCR) Coronavirus 229E (PCR) Coronavirus NL63 (PCR) Human Metapneumovir PCR Influenza A (H1) PCR Influ A (H1N1) PCR Influenza A (H3) PCR Influenza Type A (PCR) Influenza Type B (PCR) M. pneumoniae (PCR) Parainfluenza 1 (PCR) Parainfluenza 2 (PCR) Parainfluenza 3 (PCR) Parainfluenza 4 (PCR) RSV (PCR) Entero/Rhino (PCR) DS: Diagnosis - Discharge Diagnosis (1) PAC (premature atrial contraction) Status: Acute (2) Shortness of breath Status: Chronic (3) Small cell lung cancer, left upper lobe Status: Chronic (4) Coronary artery disease Status: Chronic (5) HLD (hyperlipidemia) Status: Chronic (6) Hypertension Status: Chronic (7) GERD (gastroesophageal reflux disease) Status: Chronic Discharge Plan - Patient Discharge Instructions ACTIVITY: Continue current activity DIET: continue same diet - Follow up Plan Follow up with: Martina Cherry APRN [Nurse Practitioner] - 09/10/18 11:00 am Disposition: Home, Self-Long Term Medications: Home Medications Medication Instructions Recorded Confirmed Type Aspirin [Aspirin 81mg EC Tab] 81 mg PO DAILY 10/16/17 09/03/18 History Atorvastatin Calcium [Atorvastatin 40 mg PO HS 10/16/17 09/03/18 History 40mg Tab] Pantoprazole Sodium [Protonix 40mg 40 mg PO DAILY 10/25/17 09/03/18 History tablet] Latanoprost [Xalatan 0.005% Ophth 1 drop OP HS 10/26/17 09/03/18 History Soln 2.5mL] Timolol Maleate [Timoptic 0.5% 1 drop OP BID 10/26/17 09/03/18 History opth soln 5mL] mirtazapine 15 mg tablet 15 mg PO QHS 12/04/17 09/03/18 History Calcium Carbonate 600 mg PO DAILY 09/03/18 09/03/18 History Clopidogrel Bisulfate [Plavix 75mg 75 mg PO DAILY 09/03/18 09/03/18 History Tab] Gabapentin [Gabapentin 300mg Cap] 300 mg PO QID 09/03/18 09/03/18 History Metoprolol Succinate 25 mg PO DAILY 09/03/18 09/03/18 History Nabumetone 750 mg PO BID 09/03/18 09/03/18 History Ondansetron [Ondansetron Odt 8mg 8 mg PO TIDP PRN 09/03/18 09/03/18 History Tab] Oxycodone HCl/Acetaminophen 7.5 - 325 each PO Q6HP PRN 09/03/18 09/03/18 History [Oxycodone W/Apap 325mg Tablet] predniSONE [Deltasone 10mg 10 mg PO DAILY 09/03/18 09/03/18 History tablet] Prescriptions/Medication Reconciliation: Continue mirtazapine 15 mg tablet 15 mg PO QHS Aspirin [Aspirin 81mg EC Tab] 81 mg PO DAILY Latanoprost [Xalatan 0.005% Ophth Soln 2.5mL] 1 drop OP HS Oxycodone HCl/Acetaminophen [Oxycodone W/Apap 325mg Tablet] 7.5 - 325 each PO Q6HP PRN PRN Reason: PAIN Gabapentin [Gabapentin 300mg Cap] 300 mg PO QID Calcium Carbonate 600 mg PO DAILY Ondansetron [Ondansetron Odt 8mg Tab] 8 mg PO TIDP PRN PRN Reason: Nausea Metoprolol Succinate 25 mg PO DAILY Clopidogrel Bisulfate [Plavix 75mg Tab] 75 mg PO DAILY Atorvastatin Calcium [Atorvastatin 40mg Tab] 40 mg PO HS Pantoprazole Sodium [Protonix 40mg tablet] 40 mg PO DAILY Timolol Maleate [Timoptic 0.5% opth soln 5mL] 1 drop OP BID predniSONE [Deltasone 10mg tablet] 10 mg PO DAILY Nabumetone 750 mg PO BID
== END 2018-09-04 09:40 | disposition home or self-care (01) ==
LOC: 2ND
PROVIDERS: ADMIT Internal Medicine Adolescent Medicine; ATTEND Internal Medicine Adolescent Medicine